=== PATIENT | female | born 1975 | race Caucasian/White ===

== ENCOUNTER 2016-11-06 06:20 | Day surgery (SDC) | payer BC ==
[~2016-11-06 06:20] MED LIST: Buffered Lidocaine 0.9% SYRIN* 5 ML/SYR SYRINGE INTRADERM ONE; Buffered Lidocaine 0.9% SYRIN* 5 ML/SYR SYRINGE ONE; Famotidine IV* 10 MG/ML 2 ML (20 mg) IV ONE; Famotidine IV* 10 MG/ML 2 ML (20 mg) ONE; Morphine INJ* 2 MG/ML 1 ML SYRINGE IV PRN; PROCHLORPERAZINE INJ 5 MG/ML 2 ML VIAL IV PRN; ceFAZolin 2 GM PREMIX(*) 2 GM/50 ML BAG IVPB ONE; fentaNYL* 50 MCG/ML 2 ML VIAL (100 MCG VIAL) IV PRN; oxyCODONE/Acetamin 5/325 MG* TAB PO PRN
[2016-11-06] MEDS ORDERED: Bupivacaine 0.25% EPI 200,000* 30 ML SDV ONE (07:15)
[2016-11-06] MEDS ORDERED: fentaNYL* 50 MCG/ML 2 ML VIAL (100 MCG VIAL) ONE (07:27)
[2016-11-06] MEDS ORDERED: Atracurium* 10 MG/ML 10 ML VIAL ONE (07:27)
[2016-11-06] MEDS ORDERED: Midazolam* 1 MG/ML 5 ML VIAL (5 MG) ONE (07:28)
[2016-11-06] MEDS ORDERED: Iohexol 180 (CONTRAST) 10 ML SDV IV ONE (07:42)
[2016-11-06] MEDS ORDERED: Morphine INJ* 10 MG/ML 1 ML SYRINGE ONE (08:05)
[2016-11-06] MEDS ORDERED: Diltiazem IV* 5 MG/ML 5 ML VIAL (for loading dose/IV Push) (25 MG) ONE (08:32)
[2016-11-06] MEDS ORDERED: Ondansetron INJ* 2 MG/ML VIAL ONE (09:09)
[2016-11-06] MEDS ORDERED: Lidocaine 2% PF * 5 ML VIAL ONE (09:09)
[2016-11-06] MEDS ORDERED: Neostigmine Methylsulfate* 2 MG/2 ML SYRINGE ONE (09:09)
[2016-11-06] MEDS ORDERED: Glycopyrrolate IV* 0.2 MG/ML 1 ML VIAL ONE (09:09)
[2016-11-06] MEDS ORDERED: EPHEDrine (Pressors)* 50 MG/ML VIAL ONE (09:09)
[2016-11-06] MEDS ORDERED: Ketorolac INJ* 30 MG/ML 1 ML VIAL ONE (09:09)
[2016-11-06] MEDS ORDERED: PROCHLORPERAZINE INJ 5 MG/ML 2 ML VIAL ONE ×2 (09:09→10:27)
[2016-11-06] MEDS ORDERED: Propofol* 10 MG/ML 20 ML BTL IV PUSH ONE (09:09)
[2016-11-06] MEDS ORDERED: Dexamethasone IV* 4 MG/ML 1 ML (4 MG) ONE (09:09)
[2016-11-06] MEDS ORDERED: oxyCODONE/Acetamin 5/325 MG* TAB PO PRN (09:36)
--- NOTE | 2016-11-06 09:40 | RAD ---
INDICATION: Cholelithiasis. Cholangiogram performed in the operating room. Cholecystectomy. COMPARISON: October 18, 2016 ultrasound and February 17, 2013 CT. TECHNIQUE: 23.1 seconds fluoroscopy. FINDINGS: Spot images document an intraoperative cholangiogram with injection through the cystic duct remnant. Negative for intra or extrahepatic biliary dilatation or filling defects to indicate ductal stones. Contrast passes through the ampulla to the duodenum. IMPRESSION: Procedural fluoroscopy. CPT II Codes: 6045F
[2016-11-06 12:30] VITALS: BP 121/80
--- NOTE | 2016-11-07 01:31 | OP ---
DATE OF OPERATION: 11/06/16 [facility] DATE OF : 79 SURGEON: Edy Caruso MD ASSOCIATE PROPERTY MANAGER: SP Carlton ANESTHESIOLOGIST: Dr. Quinonez. ANESTHESIA: General with local anesthetic. PRE-OP DIAGNOSIS: Cholelithiasis and right upper quadrant abdominal pain. POST-OP DIAGNOSES: 1. Cholelithiasis and right upper quadrant abdominal pain. 2. Normal-appearing cholangiogram. OPERATIVE PROCEDURE: Laparoscopic cholecystectomy with cholangiogram. ESTIMATED BLOOD LOSS: Minimal. SPECIMENS: Gallbladder. WOUND CLASSIFICATION: II. COMPLICATIONS: None. DRAINS: None. FINDINGS: There was one larger gallstone within the gallbladder but no evidence of acute inflammation of the gallbladder itself. The cholangiogram performed showed no evidence of filling defect in the common bile or common hepatic duct with free flow of contrast into the duodenum. BRIEF HISTORY: Ms. Katerina Higgins is a 41-year-old woman who has had episodes of epigastric and right upper quadrant abdominal pain radiating to the back over the past several months. Ultrasound has confirmed gallstones. She has had normal laboratory evaluations including a total bilirubin. She underwent an ultrasound of her gallbladder, which confirmed a 1.4 cm gallstone with normal duct size. On this ultrasound; however, there was concern for possible filling defect in the common bile duct concerning for choledocholithiasis. After discussion of options with the patient preoperatively including an MRCP, we have decided to proceed with a laparoscopic cholecystectomy with cholangiogram in light of her normal laboratory workup and ultrasound other than the common duct finding with the possibility of a postoperative ERCP that may be necessary. DESCRIPTION OF PROCEDURE: Written informed consent was obtained, the abdomen was marked with indelible ink and preoperative antibiotics were administered. The patient was taken to the operating room and placed in the supine position. Sequential compression devices and a warming blanket were applied. General anesthesia was administered and the abdomen was prepped and draped in the usual sterile fashion. A small transverse incision was made just below the umbilicus and midline fascia was divided and the peritoneal cavity was entered under direct vision. A 12-mm blunt port was inserted and the abdomen was insufflated to 15 mmHg. Under direct vision, an 11-mm epigastric port was placed and two 5-mm ports were placed in the right side of the abdominal wall. The gallbladder was identified. It was thin and bluish in color with some omental adhesions, which were taken down sharply. There appeared to be evidence of no acute or significant chronic inflammation, however. The gallbladder was elevated up over the liver bed and with care, the peritoneum along the medial and lateral aspects of the infundibular area was taken down and the cystic duct and artery were carefully identified as they entered the gallbladder. I took a considerable portion of the inferior part of the gallbladder off the liver bed using the critical view technique to assure myself of these two structures. The cystic duct did not appear to be dilated. A cholangiogram was then performed through the cystic duct using full strength contrast dye. This showed free flow of contrast into the duodenum that eliminated the ductal structures and anatomy nicely including the common hepatic duct with bifurcation , the common bile duct and including the distal portion and I noted no abnormality or dilation. The catheter was then removed. The cystic artery and duct were then doubly clipped and divided. The gallbladder was removed from the liver bed using cautery, placed in EndoCatch bag, and brought out through the umbilical incision. The liver bed was irrigated. Hemostasis was assured. All ports were removed under direct vision of the camera. There was no abdominal wall bleeding. The umbilical fascia was closed with interrupted 0 Polysorb suture. The skin was approximated with subcuticular 4-0 Polysorb suture. Steri-Strips and sterile dressings were applied. Patient tolerated the procedure well and was taken to the recovery room in stable condition. [id number]/[facility] #: [id number] HEATHD
== END 2016-11-06 12:24 | disposition home or self-care (01) ==
LOC: OR 06:20
PROVIDERS: ATTEND Surgery
DX: K80.10 Calculus of gallbladder with chronic cholecystitis without obstruction (principal); R10.11 Right upper quadrant pain; I47.1 Supraventricular tachycardia
CPT/HCPCS: 74300; 88304; J0690; J0780; J1100; J1885; J2250; J2270; J2405; J2704; J3010

== ENCOUNTER 2018-07-12 08:33 | Inpatient (IN) | payer BC ==
[~2018-07-12 08:33] MED LIST changes: -Buffered Lidocaine 0.9% SYRIN* 5 ML/SYR SYRINGE INTRADERM ONE; -Buffered Lidocaine 0.9% SYRIN* 5 ML/SYR SYRINGE ONE; +Buffered Lidocaine 1% SYRIN* 1 ML/SYRINGE INTRADERM ONE; +Dexamethasone IV* 4 MG/ML 1 ML (4 MG) IV SLOW PU ONE; -Famotidine IV* 10 MG/ML 2 ML (20 mg) ONE; +Lactated Ringers 1000 ML Bag* 1,000 ML IV SCH; -Morphine INJ* 2 MG/ML 1 ML SYRINGE IV PRN; -PROCHLORPERAZINE INJ 5 MG/ML 2 ML VIAL IV PRN; -ceFAZolin 2 GM PREMIX(*) 2 GM/50 ML BAG IVPB ONE; -fentaNYL* 50 MCG/ML 2 ML VIAL (100 MCG VIAL) IV PRN; -oxyCODONE/Acetamin 5/325 MG* TAB PO PRN
[2018-07-12] MEDS ORDERED: Dexamethasone IV* 4 MG/ML 1 ML (4 MG) ONE (08:51)
[2018-07-12] MEDS ORDERED: Buffered Lidocaine 1% SYRIN* 1 ML/SYRINGE INTRADERM ONE (08:52)
[2018-07-12] MEDS ORDERED: Famotidine IV* 10 MG/ML 2 ML (20 mg) ONE (08:52)
[2018-07-12] MEDS ORDERED: ceFAZolin 2 GM in NS PREMIX(*) 2 GM/100 ML BAG IVPB ONE (08:52)
[2018-07-12] MEDS ORDERED: Scopolamine 1.5 mg* PATCH ONE (09:12)
[2018-07-12 09:15] LABS: ABS Basophils 0 10^3/ul (0-0.2); ABS Eosinophils 0.1 10^3/ul (0-0.6); ABS Lymphocytes 1.7 10^3/ul (1.0-4.8); ABS Monocytes 0.4 10^3/ul (0-0.8); ABS Neutrophils 2.6 10^3/ul (1.5-7.7); ABS Nucleated RBC 0 10^3/ul; Eosinophil % 2.6 %; Hematocrit 41 % (33-41); Hemoglobin 13.7 g/dL (12.0-16.0); Lymphocyte % 35.2 %; Mean Corpuscular HGB Conc 33 g/dL (31-36); Mean Corpuscular Hemoglobin 30 pg (27-31); Mean Corpuscular Volume 90 fL (80-97); Mean Platelet Volume 8.5 fL (7.4-10.4); Nucleated Red Blood Cells % 0.1; Platelet Count 174 10^3/uL (150-450); Red Blood Count 4.54 10^6 /uL (3.70-4.87); Red Cell Distribution Width 12 % (10.5-15); White Blood Count 4.8 10^3/uL (3.5-10.8)
[2018-07-12] MEDS ORDERED: Ondansetron INJ* 2 MG/ML VIAL ONE (09:54)
[2018-07-12] MEDS ORDERED: Atracurium* 10 MG/ML 10 ML VIAL ONE (09:54)
[2018-07-12] MEDS ORDERED: Ketorolac INJ* 30 MG/ML 1 ML VIAL ONE (09:54)
[2018-07-12] MEDS ORDERED: Lidocaine 2% PF * 5 ML VIAL ONE ×2 (09:54→16:36)
[2018-07-12] MEDS ORDERED: fentaNYL* 50 MCG/ML 5 ML VIAL (250 MCG VIAL) ONE ×3 (09:54→21:08)
[2018-07-12] MEDS ORDERED: Midazolam* 1 MG/ML 5 ML VIAL (5 MG) ONE (09:54)
[2018-07-12] MEDS ORDERED: Propofol* 10 MG/ML 20 ML BTL ONE ×2 (09:54→16:36)
[2018-07-12] MEDS ORDERED: Bupivacaine 0.5% W/EPI SDV* 30 ML VIAL ONE (10:08)
[2018-07-12] MEDS ORDERED: Ondansetron INJ* 2 MG/ML VIAL IV PRN ×2 (10:30→12:10)
[2018-07-12] MEDS ORDERED: DiMENhydriNATE IV* 50 MG/ML VIAL IV PUSH PRN (10:30)
[2018-07-12] MEDS ORDERED: Naloxone* 0.4 MG/ML 1 ML VIAL IV PRN (10:30)
[2018-07-12] MEDS ORDERED: fentaNYL* 50 MCG/ML 2 ML VIAL (100 MCG VIAL) IV PRN (10:30)
[2018-07-12] MEDS ORDERED: HYDROmorphone INJ1* 1 MG/ML SYRINGE IV PRN (10:30)
[2018-07-12] MEDS ORDERED: Scopolamine 1.5 mg* PATCH TRANSDERM SCH (11:00)
[2018-07-12] MEDS ORDERED: Ibuprofen TAB* 600 MG PO PRN (12:10)
[2018-07-12] MEDS ORDERED: oxyCODONE/Acetamin 5/325 MG* TAB PO PRN (12:10)
--- NOTE | 2018-07-12 12:58 | OP ---
DATE OF OPERATION: 07/12/18 - ROOM #ICU-10 DATE OF : 79 SURGEON: Rishabh Mak MD GRAIN ELEVATOR SUPERINTENDENT: Dr. Yung. ANESTHESIA: General endotracheal tube. PRE-OP DIAGNOSIS: Adenomyosis. POST-OP DIAGNOSES: 1. Adenomyosis. 2. Endometriosis. 3. Pelvic adhesions. OPERATIVE PROCEDURES: Laparoscopic supracervical hysterectomy and bilateral salpingectomy, lysis of adhesions, and cautery of endometriosis. ESTIMATED BLOOD LOSS: 50 cc. SPECIMENS: Include uterus and tubes. FINDINGS: On exam under anesthesia, the cervix was small and appeared normal. Vagina and vulva appeared normal. On laparoscopy, the anterior bladder flap contained three 2-mm powder-burn type endometrial implants on the bladder. The cul-de-sac contained confluent 3 mm endometrial implants on the uterosacral ligaments on both sides, approximately 5 mm in length and 2 mm in width. The left ovary contained a cyst that was explored for endometriosis, was not found to have chocolate material within it. On the right side of the abdomen, the appendix appeared normal, but the cecal colon was adherent to the anterior abdominal wall with several powder-burn endometriosis. DESCRIPTION OF PROCEDURE: Patient identified and procedure identified as a laparoscopic hysterectomy. The patient was taken to the operating room, prepped and draped in the usual fashion in the dorsal lithotomy position under general anesthesia. A [place] uterine manipulator was placed in the cervical os. After the patient was catheterized, a small infraumbilical incision was made and carried down through fat, fascia and peritoneum. Vaughn retractor was placed and the GelPOINT platform was placed upon it. The 30 mm, 5 mm scope was inserted and the above findings were noted. The LigaSure was set at 3 bars and was used to cauterize and incise both the mesosalpinx and the both fallopian tubes were excised bilaterally. The ovarian ligament on the left was cauterized and incised. The round ligament was cauterized and incised on the left and a bladder flap was created via sharp and blunt dissection. The uterine vessels were then skeletonized and ligated using the LigaSure. On the right side, the ovarian ligament was then ligated using the LigaSure and then incised. The round ligament was ligated and incised using LigaSure and a bladder flap was created on the right side of the uterus. The bladder was dissected caudally. The uterine vessels were identified and cauterized and then incised. The uterine vessels were then incised on the left side. The SupraLoop was placed through a lower trocar within the platform and using 100 pure cut, the SupraLoop was placed over the uterus and then on to the cervical uterine junction. The scope was utilized to make sure there was no bowel within the loop and that was clear of all sidewall and vessels and bowel. The [place] was removed at the time of placement before the cautery of the SupraLoop and a sponge stick was placed in the vagina. Using 100 pure cut, the cervix was excised from the uterus. Good hemostasis was verified using unipolar cautery. The platform was removed and a bag was placed in the abdomen. The uterus was placed back into the bag and the bag was brought out through the incision. The uterus was then morcellated through that incision without difficulty and the bag was brought out intact. The platform was replaced and the scope was reinserted. Copious irrigation was utilized and suctioned out. Good hemostasis was verified. Unipolar cautery set at 30 coag was used to coagulate the endocervix as well as all visible sites of endometriosis. The left ovary was incised and then opened up and only clear fluid and a small amount of blood was obtained. No chocolate fluid. Good hemostasis was verified. All instruments removed from the abdomen. The abdomen was deflated of CO2. The fascia was then closed using 0 Polysorb in a running fashion. Good hemostasis in the subcuticular tissue and the skin was closed with 4-0 Monocryl and then with skin glue. At the end of the procedure, the sponge stick was removed from the vagina, and all sponge and instrument counts were correct. The patient returned to the recovery room in stable condition. [id number]/[facility] #: [id number] KEIRY
[2018-07-12] MEDS ORDERED: NS 0.9% 500 ML* 500 ML IV ONE (15:00)
[2018-07-12 15:27] LABS: Hematocrit 27 % (33-41); Hemoglobin 9.1 g/dL (12.0-16.0)
[2018-07-12] MEDS: Lactated Ringers 1000 ML Bag* 1,000 ML IV SCH (15:32)
[2018-07-12 15:46] LABS: ABS Basophils 0 10^3/ul (0-0.2); ABS Eosinophils 0 10^3/ul (0-0.6); ABS Lymphocytes 1.3 10^3/ul (1.0-4.8); ABS Monocytes 0.5 10^3/ul (0-0.8); ABS Neutrophils 13.4 10^3/ul (1.5-7.7); ABS Nucleated RBC 0 10^3/ul; Eosinophil % 0 %; Hematocrit 27 % (33-41); Lymphocyte % 8.3 %; Mean Corpuscular HGB Conc 34 g/dL (31-36); Mean Corpuscular Hemoglobin 31 pg (27-31); Mean Corpuscular Volume 91 fL (80-97); Mean Platelet Volume 8.9 fL (7.4-10.4); Nucleated Red Blood Cells % 0; Platelet Count 175 10^3/uL (150-450); Red Blood Count 2.95 10^6 /uL (3.70-4.87); Red Cell Distribution Width 12 % (10.5-15); White Blood Count 15.2 10^3/uL (3.5-10.8)
--- NOTE | 2018-07-12 16:32 | PN ---
Progress Note - Progress Note Date of Service: 07/12/18 Note: Called about pt at about 1500 for some persistent nausea and generally not feeling well. Normal UOP and pulse (80) but BP 80s/50s. 500cc NS bolus given. CBC obtained which showed Hct drop from 41 (preop) to 29 despite minimal bleeding during surgery this AM. Currently pt reports feeling very tired and nauseous but not much pain. On exam, pt very pale and tired, having trouble staying awake. BP 70-80s/40-50s. Abd soft, min tenderness Postop day 0, suspect intraabdominal bleeding, likely blood vessel that reopened. IV NS bolus restarted. OR notified for urgent laparoscopic evaluation. Pt counseled and consent signed. Family aware of situation. Dr. Mak aware and coming in to do surgery.
[2018-07-12] MEDS ORDERED: Rocuronium* 10 MG/ML VIAL ONE ×3 (16:36→21:08)
[2018-07-12] MEDS ORDERED: Etomidate* 2 MG/ML 10 ML VIAL ONE (16:36)
[2018-07-12] MEDS ORDERED: Succinylcholine* 20 MG/ML 10 ML VIAL ONE (16:36)
[2018-07-12] MEDS ORDERED: Hetastarch 6% in NS* 500 ML IV ONE (16:58)
[2018-07-12] MEDS ORDERED: Albumin Human 5%* 25 GM/500 ML BTL IV ONE (17:00)
[2018-07-12] MEDS ORDERED: Albumin Human 5%* 12.5 GM/250 ML BTL IV ONE (17:00)
[2018-07-12 17:42] LABS: Hematocrit 20 % (33-41); Hemoglobin 6.6 g/dL (12.0-16.0); Mean Corpuscular HGB Conc 33 g/dL (31-36); Mean Corpuscular Hemoglobin 31 pg (27-31); Mean Corpuscular Volume 93 fL (80-97); Mean Platelet Volume 8.7 fL (7.4-10.4); Platelet Count 78 10^3/uL (150-450); Red Blood Count 2.13 10^6 /uL (3.70-4.87); Red Cell Distribution Width 13 % (10.5-15); White Blood Count 9.1 10^3/uL (3.5-10.8)
[2018-07-12 17:50] LABS: Activated Partial Thrombo Time 33.5 seconds (26.0-36.3)
[2018-07-12 17:51] LABS: INR 1.59 (0.77-1.02)
[2018-07-12 17:59] LABS: ABS Basophils 0 10^3/ul (0-0.2); ABS Eosinophils 0 10^3/ul (0-0.6); ABS Lymphocytes 0.6 10^3/ul (1.0-4.8); ABS Monocytes 0.4 10^3/ul (0-0.8); ABS Nucleated RBC 0 10^3/ul; Eosinophil % 0.1 %; Lymphocyte % 6.5 %; Nucleated Red Blood Cells % 0
[2018-07-12] MEDS ORDERED: Propofol* 500 MG/50 ML BTL ONE (18:03)
[2018-07-12] MEDS ORDERED: Phenylephrine IV* 40 MCG/ML 10 ML SYRINGE ONE (18:03)
[2018-07-12] MEDS ORDERED: ceFAZolin VIAL(*) VIAL ONE (18:04)
[2018-07-12] MEDS ORDERED: Norepinephrine 16MCG/ML IVPRE* 4,000 MCG/250 ML BAG IV ONE (19:38)
[2018-07-12] MEDS ORDERED: Propofol* 100 ML ONE (20:09)
[2018-07-12] MEDS ORDERED: Calcium Gluconate INJ* 2 GM in NS 0.9% 100 ML* 100 ML IV ONE (20:45)
[2018-07-12 20:56] LABS: ABS Basophils 0 10^3/ul (0-0.2); ABS Eosinophils 0 10^3/ul (0-0.6); ABS Monocytes 1.2 10^3/ul (0-0.8); ABS Neutrophils 10.2 10^3/ul (1.5-7.7); ABS Nucleated RBC 0 10^3/ul; Eosinophil % 0 %; Hematocrit 29 % (33-41); Hemoglobin 9.7 g/dL (12.0-16.0); Lymphocyte % 7.8 %; Mean Corpuscular HGB Conc 33 g/dL (31-36); Mean Corpuscular Hemoglobin 31 pg (27-31); Mean Corpuscular Volume 93 fL (80-97); Mean Platelet Volume 8.9 fL (7.4-10.4); Nucleated Red Blood Cells % 0; Platelet Count 57 10^3/uL (150-450); Red Blood Count 3.13 10^6 /uL (3.70-4.87); Red Cell Distribution Width 14 % (10.5-15); White Blood Count 12.4 10^3/uL (3.5-10.8)
[2018-07-12 21:04] LABS: Activated Partial Thrombo Time 40.8 seconds (26.0-36.3); Fibrinogen 119.3 mg/dL (110.8-404.3); INR 1.4 (0.77-1.02)
[2018-07-12] MEDS ORDERED: Midazolam* 1 MG/ML 10 ML VIAL (10 MG) ONE (21:08)
[2018-07-12 21:14] LABS: ALT 8 U/L (7-52); AST 12 U/L (13-39); Albumin 1.9 g/dL (3.2-5.2); Albumin/Globulin Ratio 1.7 (1-3); Alkaline Phosphatase 17 U/L (34-104); Anion Gap 5 mmol/L (2-11); BUN/Creatinine Ratio 13.6 (8-20); Blood Urea Nitrogen 11 mg/dL (6-24); CO2 Carbon Dioxide 19 mmol/L (22-32); Chloride 112 mmol/L (101-111); EGFR African American 94.8 (>60); EGFR Non-African American 78.3 (>60); Globulin 1.1 g/dL (2-4); Glucose 220 mg/dL (70-100); Potassium 5.2 mmol/L (3.5-5.0); Sodium 136 mmol/L (135-145); Total Protein < 3.0 g/dL (6.4-8.9)
[2018-07-12 21:15] LABS: Calcium 5.8 mg/dL (8.6-10.3)
[2018-07-12] MEDS ORDERED: ceFOXitin 2 GM IVPREMIX* 2 GM/50 ML BAG ONE (21:19)
[2018-07-12] MEDS ORDERED: Epinephrine DRIP 4 mcg/ml 250 mls (dosed in mcg/min) IV SCH (21:30)
[2018-07-12] MEDS ORDERED: VASOPRESSIN 20 UNITS/ML 1 ML VIAL ONE (21:41)
[2018-07-12] MEDS ORDERED: Calcium CHLORIDE 10% SYRINGE* 1 GM/10 ML ONE (21:42)
[2018-07-12 21:58] LABS: ABS Basophils 0 10^3/ul (0-0.2); ABS Eosinophils 0 10^3/ul (0-0.6); ABS Lymphocytes 0.6 10^3/ul (1.0-4.8); ABS Monocytes 0.7 10^3/ul (0-0.8); ABS Neutrophils 4.3 10^3/ul (1.5-7.7); ABS Nucleated RBC 0.5 10^3/ul; Eosinophil % 0 %; Hematocrit 15 % (33-41); Lymphocyte % 10.8 %; Mean Corpuscular HGB Conc 34 g/dL (31-36); Mean Corpuscular Hemoglobin 31 pg (27-31); Mean Corpuscular Volume 92 fL (80-97); Mean Platelet Volume 7.7 fL (7.4-10.4); Nucleated Red Blood Cells % 8.7; Platelet Count 24 10^3/uL (150-450); Red Blood Count 1.62 10^6 /uL (3.70-4.87); Red Cell Distribution Width 14 % (10.5-15); White Blood Count 5.7 10^3/uL (3.5-10.8)
[2018-07-12] MEDS ORDERED: Gelfoam Sponge SIZE 100* SPONGE ONE (22:01)
[2018-07-12] MEDS ORDERED: Thrombin 5,000 UNITS* 1 APPLIC KIT - topical use - TOPICAL ONE ×2 (22:01→22:03)
[2018-07-12 22:02] LABS: Hemoglobin 5.1 g/dL (12.0-16.0)
[2018-07-12] MEDS ORDERED: Sodium Bicarbonate 8.4%* 50 ML SYRINGE ONE (22:03)
[2018-07-12 22:38] LABS: ABS Basophils 0 10^3/ul (0-0.2); ABS Eosinophils 0 10^3/ul (0-0.6); ABS Lymphocytes 0.3 10^3/ul (1.0-4.8); ABS Monocytes 0.5 10^3/ul (0-0.8); ABS Neutrophils 4.5 10^3/ul (1.5-7.7); ABS Nucleated RBC 0 10^3/ul; Eosinophil % 0 %; Hematocrit 18 % (33-41); Lymphocyte % 6.2 %; Mean Corpuscular HGB Conc 34 g/dL (31-36); Mean Corpuscular Hemoglobin 31 pg (27-31); Mean Corpuscular Volume 90 fL (80-97); Mean Platelet Volume 7.6 fL (7.4-10.4); Nucleated Red Blood Cells % 0; Platelet Count 70 10^3/uL (150-450); Red Cell Distribution Width 14 % (10.5-15); White Blood Count 5.4 10^3/uL (3.5-10.8)
[2018-07-12] MEDS ORDERED: COAGULATION FACTOR VIIA IV ONE (22:45)
[2018-07-12 22:48] LABS: Hemoglobin 6.1 g/dL (12.0-16.0); INR 0.74 (0.77-1.02)
[2018-07-12 22:52] LABS: BUN/Creatinine Ratio 17.2 (8-20); EGFR African American 139.3 (>60); EGFR Non-African American 115.1 (>60)
[2018-07-12 22:59] LABS: Potassium 5.9 mmol/L (3.5-5.0)
[2018-07-12] MEDS ORDERED: Calcium CHLORIDE 10% SYRINGE* 1 GM/10 ML IV ONE (23:04)
--- NOTE | 2018-07-12 23:57 | PN ---
Progress Note - Progress Note Date of Service: 07/12/18 Note: Central Line Procedure Note Indication:shock, venous access Diagnosis: hemorrhagic shock Performed by: Anshu Bowman MD Consent: Emergent [place] Protocol: Time-out was performed and the correct patient and site were verified - Prior labs/history was reviewed prior to procedure - Full sterile precautions with chlorhexidine/full drapes/gowns/gloves utilized - Right femoral veing visualized with ultrasound - Vessel accessed under ultrasound guidance with return of nonpulsatile blood. A guidewire was passed into vessel and confirmed in vessel with ultrasound. 1 attempt was made to access vessel. Vessel was dilated and cathetor was passed over wire into vessel. All ports demonstrated good blood return and flushed. Catheter was sutured to site and dressing applied. Adequate hemostasis was achieved EBL <5 cc No immediate complications noted, patient tolerated procedure well. Anshu Bowman MD [employer] (Electronically Signed)
--- NOTE | 2018-07-12 23:58 | PN ---
Progress Note - Progress Note Date of Service: 07/12/18 Note: Arterial Line Procedure Note Indication: invasive hemodynamic monitoring Diagnosis: hemorrhagic shock Performed by: Anshu Bowman MD Consent: Emergent [place] Protocol: Time-out was performed and the correct patient and site were verified - Prior labs/history was reviewed prior to procedure - Full sterile precautions with chlorhexidine/full drapes/gowns/gloves utilized - Left femoral artery visualized with US - Vessel accessed with return of pulsatile blood. One attempt was made to access vessel. A cathetor was threaded over wire into vessel. Good arterial waveform was observed on monitor. - Arterial Catheter was sutured to site; dressing applied to site. EBL<5 cc No immediate complications noted, patient tolerated procedure well. Anshu Bowman MD Diesel Service Journeyman (Electronically Signed)
--- NOTE | 2018-07-12 23:58 | CONSULT ---
Consult Consult: Critical Care Consult 42y F who presented for elective hysterectomy Post op today went to floor, then surgeons called for distended abdomen, lethargy, hypotension 70s. Taken to OR, found to have 2000+cc in abdomen of blood; no source but just oozing everywhere. Given total of 2 PRBC there and 2 FFP; stabilized and brought to ICU She was intubated on low dose sedation propofol in ICU, she became hypotensive, emergent central lines and arterial lines placed by me 4 more PRBC given emergently Total of 6 PRBC, 2 FFP given. Abdomen was more distended and tense, noted fluid on abd US by me Surgeon aware Dr Mak She was taken to OR by Dr Mak and Dr Baptiste for ex-lap emergently within 1- 2 hr of ICU arrival in OR, ex-lap, but no bleeding source but generalized oozing, likely from coagulopathy. abd closed now in ICU total of 3 prbc, 4 ffp, 2 plt, 1 cry given in OR now in ICU, BP stable, off levophed warm and pink appearing 2 more prbc given now, 1 cryo infusing; 2 plt enroute being shipped she is sedated, no distress. sat 100% abdominal surgical site intact, not distended making urine all labs to be sent now as repeats stat Total Critical Care time 90 min on 07/13 not including procedures Disposition: ICU for hemorrhagic shock, coagulopathy, acute blood loss anemia, respiratorry failure status: unstable, critical Anshu Bowman MD Data Sme (electronically signed)
[2018-07-13] MEDS: Lactated Ringers 1000 ML Bag* 1,000 ML IV SCH ×2 (00:21→08:21)
[2018-07-13 00:33] LABS: ABS Basophils 0 10^3/ul (0-0.2); ABS Eosinophils 0 10^3/ul (0-0.6); ABS Lymphocytes 0.7 10^3/ul (1.0-4.8); ABS Monocytes 0.8 10^3/ul (0-0.8); ABS Neutrophils 7.1 10^3/ul (1.5-7.7); ABS Nucleated RBC 0 10^3/ul; Eosinophil % 0 %; Hematocrit 31 % (33-41); Hemoglobin 10.4 g/dL (12.0-16.0); Mean Corpuscular HGB Conc 34 g/dL (31-36); Mean Corpuscular Hemoglobin 30 pg (27-31); Mean Corpuscular Volume 90 fL (80-97); Mean Platelet Volume 7.5 fL (7.4-10.4); Nucleated Red Blood Cells % 0; Platelet Count 88 10^3/uL (150-450); Red Blood Count 3.42 10^6 /uL (3.70-4.87); Red Cell Distribution Width 14 % (10.5-15); White Blood Count 8.6 10^3/uL (3.5-10.8)
[2018-07-13 00:35] LABS: Activated Partial Thrombo Time 32.8 seconds (26.0-36.3); INR 0.66 (0.77-1.02)
[2018-07-13 00:36] LABS: Albumin 2.7 g/dL (3.2-5.2); Albumin/Globulin Ratio 1.8 (1-3); BUN/Creatinine Ratio 16.7 (8-20); Calcium 7.3 mg/dL (8.6-10.3); EGFR Non-African American 110.7 (>60); Globulin 1.5 g/dL (2-4); Potassium 3.9 mmol/L (3.5-5.0); Total Bilirubin 1.2 mg/dL (0.2-1.0); Total Protein 4.2 g/dL (6.4-8.9)
[2018-07-13 00:53] LABS: Fibrinogen 314.5 mg/dL (110.8-404.3)
--- NOTE | 2018-07-13 01:53 | OP ---
AMENDED REPORT NOW INCLUDES DATE OF OPERATION DATE OF OPERATION: 07/12/18 DATE OF [facility]: 79 SURGEON: Rishabh Mak MD TIRE MANAGER: Dr. Yung. ANESTHESIA: General endotracheal tube. PRE-OP DIAGNOSIS: Postoperative bleed and shock with hematocrit of 29. POST-OP DIAGNOSIS: Hemoperitoneum. OPERATIVE PROCEDURE: 1. Evacuation of hemoperitoneum. 2. Cautery of uterine vessels. 3. Diagnostic laparoscopy. ESTIMATED BLOOD LOSS: Approximately 2 L was found in the belly. FINDINGS: At laparoscopy, there was approximately 2 L of blood in the belly, much clot in the omentum. The pedicles and the uterine vessels were inspected closely and found to be hemostatic. A small amount of bleeding from the cervical stump that was not profuse. DESCRIPTION OF PROCEDURE: Patient identified and procedure identified as a diagnostic laparoscopy. The patient was taken to the operating room, prepped and draped in the usual fashion for a laparoscopy. A sponge stick was placed in the vagina. An infraumbilical incision was made through the old incision and carried down through fat, fascia, and peritoneum. Again, the Vaughn retractor was placed and the GelPOINT placed over that. At this point, copious amounts of bright red blood were seen. The abdomen was insufflated to 15 mmHg. The laparoscope was inserted and the above findings were noted. Copious irrigation and suctioned were utilized to provide clear visualization of the areas of surgery that were done previously earlier in the day until pedicles were all visualized. All the blood vessels that had been transected that could be visualized were cauterized using the LigaSure on 3 bars. The uterine artery , especially along both sides of the cervical stump were cauterized. The left ovary where it had been incised was also reinspected and found to be hemostatic. The omentum was cleared off much of the clot, though it could not be completely cleared, and there was no active hemorrhage seen anywhere in the abdomen. After this had been fully evaluated, all instruments removed from the abdomen and the abdomen was deflated of CO2. The fascia was then closed using 0 Polysorb in a running fashion. Good hemostasis in the subcuticular tissue and the skin was closed with 4-0 Monocryl in a subcuticular fashion and glue was applied. Sponge and sponge stick was removed from the vagina and the patient was transported to ICU for decision about extubation and further evaluation for blood products. She received two units in the OR and then was continued to receive two units on the way to the ICU. All sponge and instrument counts were correct. [id number]/[facility] #: [id number] MTDDory
--- NOTE | 2018-07-13 02:43 | CONS ---
CC: Rishabh Mak MD * SURGICAL CONSULTATION: DATE OF CONSULT: 07/12/18 REQUESTING PHYSICIAN: Rishabh Mak MD REASON FOR CONSULTATION: Hemoperitoneum. HISTORY OF PRESENT ILLNESS: This is a 42-year-old female who underwent laparoscopic single-port supracervical hysterectomy today complicated by postoperative bleeding for which the patient was returned to the operating room for laparoscopy. The patient subsequently remained intubated and was transferred to the intensive care unit. She received 6 units of blood, 2 units of FFP and due to concerns for ongoing bleeding, the patient was returned to the operating room by Dr. Mak and I was asked to assist in her care. The patient was encountered on the operating room table and Dr. Mak performed midline laparotomy as dictated in his note. At that time, a large amount of hemoperitoneum was encountered and I assisted in enlarging the laparotomy incisions superiorly packing off the abdomen and temporarily applied manual compression to her aorta due to hemodynamic instability. There was subsequent return of adequate pressures and thorough exploration of the abdomen was next performed. Lap pads were removed sequentially from 4 quadrants and upon inspection of the left upper quadrant, there was a large amount of blood and clot. Due to concerns for a prior inadvertent splenic injury, the incision was further extended upwards toward the xiphoid and after evacuating blood and clot, examination of the spleen revealed this to be intact. The anterior surface of the stomach was inspected and noted to be normal. A nasogastric tube was advanced into the body of the stomach under direct palpation. Inspection of the right upper quadrant revealed no evidence of any liver injury. Gallbladder appeared normal. In the right lower quadrant, there was some blood within the right pericolic retroperitoneal tissues adjacent to the site where the patient had retroperitoneum opened during lysis of adhesions and apparent cauterization of endometriosis. Careful inspection of this area did not reveal any active bleeding. The small bowel was run from the ligament of Treitz distally to the ileocecal valve and back again. There was no evidence of injury to the small bowel or the small bowel mesentry. Inspection of the retroperitoneum in the area of the aorta and the bifurcation revealed no hematoma or evidence of injury. The large intestine was examined. The cecum, appendix, ascending colon, transverse colon all appeared normal as did the descending colon, sigmoid, and rectum. Within the omentum, there was clotted blood noted. There was some hematoma that was thought to be possibly due to small vessel bleeding within the omentum and this was ligated with 3-0 Vicryl. Remaining inspection revealed evidence of bleeding within the pelvis. This was dealt with as dictated in Dr. Mak's note. IMPRESSION: Hemoperitoneum secondary to postoperative bleeding, status post laparoscopic supracervical hysterectomy, as well as consumptive coagulopathy versus disseminated intravascular coagulation. PLAN/RECOMMENDATIONS: The patient will continue to be resuscitated and transfused per the rapid transfusion protocol in order to correct her anemia, thrombocytopenia, and coagulopathy. Surgical associates will be available should additional surgical needs arise. [id number]/[facility] #: [id number] MTDD
--- NOTE | 2018-07-13 03:24 | OP ---
OPERATIVE REPORT: DATE OF OPERATION: 07/12/18 DATE OF : 79 SURGEON: Rishabh Mak MD. SALES REPRESENTATIVE AIRCRAFT: Dr. Smyth. POWER SYSTEM DISPATCHER: Dr. Yung. ANESTHESIA: General endotracheal tube. PRE-OP DIAGNOSES: 1. Abdominal distention and shock. 2. Evidence of hemoperitoneum. POST-OP DIAGNOSIS: Hemoperitoneum. OPERATIVE PROCEDURES: Exploratory laparotomy and ligation of vessels and left salpingo-oophorectomy and ligation of omental blood vessel. ESTIMATED BLOOD LOSS: Upon entry, there was approximately 3 L of blood in her belly. FINDINGS: On exploratory laparotomy, there was 3 L of blood in her abdomen. Cervix was inspected and found to be just somewhat with a small ooze, same thing with the left ovary and the right ovary. The omentum had some clots in an area on the right side where there have been some dissection and along the midline just below the stomach, approximately 2 cm caudally from that. There was no obvious source of hemorrhage and bleeding. DESCRIPTION OF PROCEDURE: The patient was identified and procedure identified as exploratory laparotomy. The patient was taken back to the OR from the ICU, and prepped and draped in the usual fashion. An incision was initially made from the pubic bone up to the umbilicus and packed with lap pads as copious amounts of blood and clot were immediately discovered. These were utilized till the pelvis could be easily seen. There was no obvious bleeding source in the pelvis. The incision was then extended up to the xiphoid and the whole abdomen was explored. Again, initially, the packing was utilized, and given the amount of blood, Dr. Smyth put compression on the aorta while laps were used to remove clots and large amounts of blood until the organs could be well visualized. Dr. Smyth did an organized meticulous inspection of the abdomen, especially along the omentum and we inspected the pelvis because there was some bleeding from the left ovary. The decision was made to remove that left ovary from the infundibulopelvic ligament and it was suture ligated with 0 Polysorb x1 and 0 tie was placed as well. The left ovary was excised and the pedicle was found to be hemostatic. The uterine vessels on the left and right were suture ligated using 0 Polysorb after Silke clamps had been placed along the paracervical tissue. The bladder was caudal to these sites of ligation. A suture was also placed through the cervical stump in order to also provide good hemostasis. Again, no obvious source of this degree of bleeding was visualized , only small amounts of ooze from raw surfaces. It was noted that there was a tear along the right ovary and this was stitched using 3-0 Polysorb in a running locked fashion and good hemostasis was verified. This was then packed and again we reinspected the omentum after Dr. Smyth did place a suture around a vessel in the omentum that had several areas of clot, though no obvious source of ongoing bleeding. It was felt that the abdomen had been adequately visualized and again the anesthesiology and OR crew had continued to fluid resuscitate and replace the blood products that had been lost based on the patient's laboratory values and a massive transfusion protocol had been activated at the time of going to the OR. Again, all sites were inspected. Fibrinogen and Gelfoam were utilized in the pelvis along the raw surfaces to try to provide further hemostasis. All instruments were removed from the abdomen. The abdomen was then closed using 0 PDS in a running [place] fashion. Hemostasis was achieved in the subcuticular tissue and the skin was closed with ricardo. All sponge and instrument counts were correct, but because we had done in a graham, an x-ray was taken and no sponges were seen in the abdominal x-ray. The patient returned back to ICU in guarded condition. [id number]/[facility] #: [id number] [facility] HOSPITALDory
[2018-07-13] MEDS: Propofol* 100 ML IV SCH ×2 (04:29→08:19)
[2018-07-13 05:49] LABS: ABS Basophils 0 10^3/ul (0-0.2); ABS Eosinophils 0 10^3/ul (0-0.6); ABS Lymphocytes 0.9 10^3/ul (1.0-4.8); ABS Monocytes 0.6 10^3/ul (0-0.8); ABS Neutrophils 4.2 10^3/ul (1.5-7.7); ABS Nucleated RBC 0 10^3/ul; Eosinophil % 0.1 %; Hematocrit 28 % (33-41); Hemoglobin 9.7 g/dL (12.0-16.0); Lymphocyte % 15.3 %; Mean Corpuscular HGB Conc 34 g/dL (31-36); Mean Corpuscular Hemoglobin 30 pg (27-31); Mean Corpuscular Volume 88 fL (80-97); Mean Platelet Volume 7.5 fL (7.4-10.4); Nucleated Red Blood Cells % 0; Platelet Count 124 10^3/uL (150-450); Red Blood Count 3.22 10^6 /uL (3.70-4.87); Red Cell Distribution Width 14 % (10.5-15); White Blood Count 5.8 10^3/uL (3.5-10.8)
[2018-07-13 06:03] LABS: Fibrinogen 310.7 mg/dL (110.8-404.3); INR 0.82 (0.77-1.02)
[2018-07-13 06:07] LABS: Albumin 2.8 g/dL (3.2-5.2); Albumin/Globulin Ratio 1.8 (1-3); BUN/Creatinine Ratio 16.4 (8-20); Calcium 7.2 mg/dL (8.6-10.3); EGFR African American 131.4 (>60); EGFR Non-African American 108.6 (>60); Globulin 1.6 g/dL (2-4); Magnesium 1.1 mg/dL (1.9-2.7); Phosphorus 3.4 mg/dL (2.5-5.0); Potassium 3.2 mmol/L (3.5-5.0); Total Bilirubin 1.3 mg/dL (0.2-1.0); Total Protein 4.4 g/dL (6.4-8.9)
[2018-07-13] MEDS: KCL 20 MEQ/100 ML IVPREMIX* 20 MEQ/100 ML BAG IV SCH ×3 (08:19→23:13)
[2018-07-13] MEDS ORDERED: Magnesium Sulfate 2 GM IV (Premix) IVPB ONE (08:30)
[2018-07-13] MEDS ORDERED: Lactated Ringers 1000 ML Bag* 1,000 ML IV SCH (10:11)
[2018-07-13] MEDS ORDERED: Calcium Gluconate INJ* 2 GM in NS 0.9% 100 ML* 100 ML IV ONE (10:30)
[2018-07-13] MEDS ORDERED: Furosemide IV* 10 MG/ML 2 ML VIAL (20 MG) ONE ×2 (11:44→12:19)
[2018-07-13] MEDS ORDERED: Furosemide IV* 10 MG/ML VIAL (40 MG) IV ONE (11:59)
--- NOTE | 2018-07-13 12:19 | PN ---
Progress Note - Progress Note Date of Service: 07/13/18 Note: Progress Note -- Critical Care 24 hour events/significant events: -post op, hemorrhagic shock; went to OR x2 yesterday -s/p multiple PRBC/ffp/plt/cryo -overngith stabilized -on vent, no distress -some edema noted -discussed with family -tmax 99.5 Tele: NSR Vitals: Vital Signs Temp 99.5 F 07/13/18 08:00 Pulse 102 07/13/18 11:00 Resp 14 07/13/18 11:00 BP 117/85 07/13/18 04:00 Pulse Ox 100 07/13/18 11:00 Intake & Output 07/12/18 07/13/18 07/13/18 18:59 06:59 18:59 Intake Total 2029 2462 0 Output Total 2670 1285 Balance 2029 - -1285 Weight 59.148 kg 66.633 kg Intake: IV Fluids 2029 707 LR 1500 707 NS (0.9%) 480 NS 50ML, Cefazolin 2G 50 Medicated IV 186 CC - Norepinephrine/ 23 Levophed CC - Propofol/Diprivan 163 Packed Cells 930 0 Fresh Frozen Plasma 639 0 Output: [place] 2670 1285 O2/Vent: AC 305 Infusions: NS, propofol Medications: Hydromorphone HCl (Dilaudid Inj1s*) 0.5 mg IV Q4H PRN PRN Reason: PAIN - BREAKTHROUGH Propofol (Diprivan*) 100 mls @ 14.196 mls/hr IV .(Initial Rate) CAMERON; Protocol Last Admin: 07/13/18 08:19 Dose: 22.2 mls/hr Potassium Chloride (Potassium Chloride 20 Meq/100 Ml Ivpremix*) 20 meq in 100 mls @ 50 mls/hr IV Q2H [place] Stop: 07/13/18 12:29 Last Admin: 07/13/18 09:34 Dose: 50 mls/hr Calcium Gluconate 2 gm/ Sodium (Chloride) 120 mls @ 60 mls/hr IV ONCE ONE Stop: 07/13/18 12:29 Last Admin: 07/13/18 10:54 Dose: 60 mls/hr Lactated Ringer's (Lactated Ringers 1000 Ml Bag*) 1,000 mls @ 75 mls/hr IV PER RATE [facility] Ibuprofen (Motrin Tab*) 600 mg PO Q6H PRN PRN Reason: PAIN - MILD Ondansetron HCl (Zofran Inj*) 4 mg IV Q6H PRN PRN Reason: NAUSEA Last Admin: 07/12/18 13:48 Dose: 4 mg Oxycodone/Acetaminophen (Percocet 5/325 Tab*) 1 tab PO Q4H PRN PRN Reason: PAIN - MILD Oxycodone/Acetaminophen (Percocet 5/325 Tab*) 2 tab PO Q4H PRN PRN Reason: PAIN - MODERATE TO SEVERE Scopolamine (Transderm-Scop 1.5 Mg Patch*) 1 patch TRANSDERM Q72H CAMERON Last Admin: 07/12/18 09:20 Dose: 1 patch Physical Exam: Constitutional: intubated, sedated, awakens on district administrator sedation, no distress, no diaphoresis Head: normocephalic, atraumatic Eyes: no pallor now, no icterus ENT: moist mucous membranes Neck: soft, supple, no jvd CVS: normal rate, regular, no murmur Resp: bilateral air entry, no RRW, no acc muscle use Abdomen/GI: soft, tender+, midline surgical site dressed and intact, nondistended, BS+ Ext/Msk: warm, pulses+, +edema Skin: intact, warm Neuro: sedated, awakens Labs: Laboratory Results - last 24 hr 07/12/18 07/12/18 07/12/18 09:06 15:10 15:10 WBC 15.2 H RBC 2.95 L Hgb 9.0 L 9.1 L Hct 27 L 27 L MCV 91 MCH 31 MCHC 34 RDW 12 Plt Count 175 MPV 8.9 Neut % (Auto) 88.0 Lymph % (Auto) 8.3 [place] % (Auto) 3.6 Eos % (Auto) 0 Baso % (Auto) 0.1 Absolute Neuts (auto) 13.4 H Absolute Lymphs (auto) 1.3 Absolute Monos (auto) 0.5 Absolute Eos (auto) 0 Absolute Basos (auto) 0 Absolute Nucleated RBC 0 Nucleated RBC % 0 Hem Pathologist Commnt INR (Anticoag Therapy) APTT Fibrinogen Patient Temperature ABG pH ABG pCO2 ABG pO2 ABG HCO3 ABG O2 Saturation ABG Base Excess Respiration Rate O2 Delivery Device Ventilator Type Vent Mode FiO2 Inspiratory Time PEEP Pressure Support Pressure Control EPAP IPAP BiPAP Sodium Potassium Chloride Carbon Dioxide Anion Gap BUN Creatinine Est GFR ( Amer) Est GFR (Non-Af Amer) BUN/Creatinine Ratio Glucose Lactic Acid Calcium Ionized Calcium Phosphorus Magnesium Total Bilirubin Direct Bilirubin Indirect Bilirubin AST ALT Alkaline Phosphatase Total Creatine Kinase Total Protein Albumin Globulin Albumin/Globulin Ratio Blood Type A Negative Antibody Screen Negative Crossmatch See Detail 07/12/18 07/12/18 07/12/18 17:28 17:28 20:45 WBC 9.1 RBC 2.13 L Hgb 6.6 L Hct 20 L MCV 93 MCH 31 MCHC 33 RDW 13 Plt Count 78 L D MPV 8.7 Neut % (Auto) 88.2 Lymph % (Auto) 6.5 [place] % (Auto) 5.0 Eos % (Auto) 0.1 Baso % (Auto) 0.2 Absolute Neuts (auto) 8.0 H Absolute Lymphs (auto) 0.6 L Absolute Monos (auto) 0.4 Absolute Eos (auto) 0 Absolute Basos (auto) 0 Absolute Nucleated RBC 0 Nucleated RBC % 0 Hem Pathologist Commnt Cancelled INR (Anticoag Therapy) 1.59 H 1.40 H APTT 33.5 40.8 H Fibrinogen 119.3 Patient Temperature ABG pH ABG pCO2 ABG pO2 ABG HCO3 ABG O2 Saturation ABG Base Excess Respiration Rate O2 Delivery Device Ventilator Type Vent Mode FiO2 Inspiratory Time PEEP Pressure Support Pressure Control EPAP IPAP BiPAP Sodium Potassium Chloride Carbon Dioxide Anion Gap BUN Creatinine Est GFR ( Amer) Est GFR (Non-Af Amer) BUN/Creatinine Ratio Glucose Lactic Acid Calcium Ionized Calcium Phosphorus Magnesium Total Bilirubin Direct Bilirubin Indirect Bilirubin AST ALT Alkaline Phosphatase Total Creatine Kinase Total Protein Albumin Globulin Albumin/Globulin Ratio Blood Type Antibody Screen Crossmatch 07/12/18 07/12/18 07/12/18 20:45 20:45 21:49 WBC 12.4 H 5.7 RBC 3.13 L 1.62 L Hgb 9.7 L 5.1 L* Hct 29 L 15 L MCV 93 92 MCH 31 31 MCHC 33 34 RDW 14 14 Plt Count 57 L 24 L D MPV 8.9 7.7 Neut % (Auto) 82.7 76.0 Lymph % (Auto) 7.8 10.8 [place] % (Auto) 9.4 13.0 Eos % (Auto) 0 0 Baso % (Auto) 0.1 0.2 Absolute Neuts (auto) 10.2 H 4.3 Absolute Lymphs (auto) 1.0 0.6 L Absolute Monos (auto) 1.2 H 0.7 Absolute Eos (auto) 0 0 Absolute Basos (auto) 0 0 Absolute Nucleated RBC 0 0.5 Nucleated RBC % 0 8.7 Hem Pathologist Commnt INR (Anticoag Therapy) APTT Fibrinogen Patient Temperature ABG pH ABG pCO2 ABG pO2 ABG HCO3 ABG O2 Saturation ABG Base Excess Respiration Rate O2 Delivery Device Ventilator Type Vent Mode FiO2 Inspiratory Time PEEP Pressure Support Pressure Control EPAP IPAP BiPAP Sodium 136 Potassium 5.2 H Chloride 112 H Carbon Dioxide 19 L Anion Gap 5 BUN 11 Creatinine 0.81 Est GFR ( Amer) 94.8 Est GFR (Non-Af Amer) 78.3 BUN/Creatinine Ratio 13.6 Glucose 220 H Lactic Acid Calcium 5.8 L* Ionized Calcium Phosphorus Magnesium Total Bilirubin 0.60 Direct Bilirubin Indirect Bilirubin AST 12 L ALT 8 Alkaline Phosphatase 17 L Total Creatine Kinase Total Protein < 3.0 L Albumin 1.9 L Globulin 1.1 L Albumin/Globulin Ratio 1.7 Blood Type Antibody Screen Crossmatch 07/12/18 07/12/18 07/12/18 21:49 22:27 22:27 WBC 5.4 RBC 2.00 L Hgb 6.1 L* Hct 18 L MCV 90 MCH 31 MCHC 34 RDW 14 Plt Count 70 L D MPV 7.6 Neut % (Auto) 84.1 Lymph % (Auto) 6.2 [place] % (Auto) 9.6 Eos % (Auto) 0 Baso % (Auto) 0.1 Absolute Neuts (auto) 4.5 Absolute Lymphs (auto) 0.3 L Absolute Monos (auto) 0.5 Absolute Eos (auto) 0 Absolute Basos (auto) 0 Absolute Nucleated RBC 0 Nucleated RBC % 0 Hem Pathologist Commnt INR (Anticoag Therapy) APTT Fibrinogen Patient Temperature ABG pH 7.31 L ABG pCO2 33 L ABG pO2 275 H ABG HCO3 18.2 L ABG O2 Saturation 100.0 H ABG Base Excess -8.6 L Respiration Rate O2 Delivery Device Ventilator Type Vent Mode FiO2 Inspiratory Time PEEP Pressure Support Pressure Control EPAP IPAP BiPAP Sodium 139 Potassium 5.9 H Chloride 114 H Carbon Dioxide 18 L Anion Gap 7 BUN 10 Creatinine 0.58 Est GFR ( Amer) 139.3 Est GFR (Non-Af Amer) 115.1 BUN/Creatinine Ratio 17.2 Glucose 187 H Lactic Acid Calcium 6.0 L* Ionized Calcium Phosphorus Magnesium Total Bilirubin Direct Bilirubin Indirect Bilirubin AST ALT Alkaline Phosphatase Total Creatine Kinase Total Protein Albumin Globulin Albumin/Globulin Ratio Blood Type Antibody Screen Crossmatch 07/12/18 07/12/18 07/12/18 22:27 22:27 22:27 WBC RBC Hgb Hct MCV MCH MCHC RDW Plt Count MPV Neut % (Auto) Lymph % (Auto) [place] % (Auto) Eos % (Auto) Baso % (Auto) Absolute Neuts (auto) Absolute Lymphs (auto) Absolute Monos (auto) Absolute Eos (auto) Absolute Basos (auto) Absolute Nucleated RBC Nucleated RBC % Hem Pathologist Commnt INR (Anticoag Therapy) 0.74 L APTT Fibrinogen Patient Temperature Not Reportable ABG pH 7.39 ABG pCO2 28 L ABG pO2 468 H ABG HCO3 19.8 ABG O2 Saturation 99.5 H ABG Base Excess -6.6 L Respiration Rate Not Reportable O2 Delivery Device Not Reportable Ventilator Type Not Reportable Vent Mode Not Reportable FiO2 Not Reportable Inspiratory Time Not Reportable PEEP Not Reportable Pressure Support Not Reportable Pressure Control Not Reportable EPAP Not Reportable IPAP Not Reportable BiPAP Not Reportable Sodium Potassium Chloride Carbon Dioxide Anion Gap BUN Creatinine Est GFR ( Amer) Est GFR (Non-Af Amer) BUN/Creatinine Ratio Glucose Lactic Acid Calcium Ionized Calcium 0.62 L* Phosphorus Magnesium Total Bilirubin Direct Bilirubin Indirect Bilirubin AST ALT Alkaline Phosphatase Total Creatine Kinase Total Protein Albumin Globulin Albumin/Globulin Ratio Blood Type Antibody Screen Crossmatch 07/13/18 07/13/18 07/13/18 00:10 00:10 00:10 WBC 8.6 RBC 3.42 L Hgb 10.4 L Hct 31 L MCV 90 MCH 30 MCHC 34 RDW 14 Plt Count 88 L MPV 7.5 Neut % (Auto) 82.5 Lymph % (Auto) 8.0 [place] % (Auto) 9.3 Eos % (Auto) 0 Baso % (Auto) 0.2 Absolute Neuts (auto) 7.1 Absolute Lymphs (auto) 0.7 L Absolute Monos (auto) 0.8 Absolute Eos (auto) 0 Absolute Basos (auto) 0 Absolute Nucleated RBC 0 Nucleated RBC % 0 Hem Pathologist Commnt INR (Anticoag Therapy) 0.66 L APTT 32.8 Fibrinogen 314.5 Patient Temperature ABG pH ABG pCO2 ABG pO2 ABG HCO3 ABG O2 Saturation ABG Base Excess Respiration Rate O2 Delivery Device Ventilator Type Vent Mode FiO2 Inspiratory Time PEEP Pressure Support Pressure Control EPAP IPAP BiPAP Sodium Potassium Chloride Carbon Dioxide Anion Gap BUN Creatinine Est GFR ( Amer) Est GFR (Non-Af Amer) BUN/Creatinine Ratio Glucose Lactic Acid 2.8 H* Calcium Ionized Calcium Phosphorus Magnesium Total Bilirubin Direct Bilirubin Indirect Bilirubin AST ALT Alkaline Phosphatase Total Creatine Kinase Total Protein Albumin Globulin Albumin/Globulin Ratio Blood Type Antibody Screen Crossmatch 07/13/18 07/13/18 07/13/18 00:10 00:10 00:10 WBC RBC Hgb Hct MCV MCH MCHC RDW Plt Count MPV Neut % (Auto) Lymph % (Auto) [place] % (Auto) Eos % (Auto) Baso % (Auto) Absolute Neuts (auto) Absolute Lymphs (auto) Absolute Monos (auto) Absolute Eos (auto) Absolute Basos (auto) Absolute Nucleated RBC Nucleated RBC % Hem Pathologist Commnt INR (Anticoag Therapy) APTT Fibrinogen Patient Temperature ABG pH ABG pCO2 ABG pO2 ABG HCO3 ABG O2 Saturation ABG Base Excess Respiration Rate O2 Delivery Device Ventilator Type Vent Mode FiO2 Inspiratory Time PEEP Pressure Support Pressure Control EPAP IPAP BiPAP Sodium 140 Potassium 3.9 D Chloride 112 H Carbon Dioxide 21 L Anion Gap 7 BUN 10 Creatinine 0.60 Est GFR ( Amer) 134.0 Est GFR (Non-Af Amer) 110.7 BUN/Creatinine Ratio 16.7 Glucose 158 H Lactic Acid Calcium 7.3 L Ionized Calcium 0.97 L Phosphorus Magnesium Total Bilirubin 1.20 H Direct Bilirubin Indirect Bilirubin AST 49 H ALT 40 Alkaline Phosphatase 35 Total Creatine Kinase Total Protein 4.2 L Albumin 2.7 L Globulin 1.5 L Albumin/Globulin Ratio 1.8 Blood Type A Negative Antibody Screen Negative Crossmatch See Detail 07/13/18 07/13/18 07/13/18 05:38 05:38 05:38 WBC 5.8 RBC 3.22 L Hgb 9.7 L Hct 28 L MCV 88 MCH 30 MCHC 34 RDW 14 Plt Count 124 L MPV 7.5 Neut % (Auto) 73.2 Lymph % (Auto) 15.3 [place] % (Auto) 11.2 Eos % (Auto) 0.1 Baso % (Auto) 0.2 Absolute Neuts (auto) 4.2 Absolute Lymphs (auto) 0.9 L Absolute Monos (auto) 0.6 Absolute Eos (auto) 0 Absolute Basos (auto) 0 Absolute Nucleated RBC 0 Nucleated RBC % 0 Hem Pathologist Commnt INR (Anticoag Therapy) 0.82 APTT Fibrinogen 310.7 Patient Temperature ABG pH ABG pCO2 ABG pO2 ABG HCO3 ABG O2 Saturation ABG Base Excess Respiration Rate O2 Delivery Device Ventilator Type Vent Mode FiO2 Inspiratory Time PEEP Pressure Support Pressure Control EPAP IPAP BiPAP Sodium 140 Potassium 3.2 L Chloride 110 Carbon Dioxide 24 Anion Gap 6 BUN 10 Creatinine 0.61 Est GFR ( Amer) 131.4 Est GFR (Non-Af Amer) 108.6 BUN/Creatinine Ratio 16.4 Glucose 83 Lactic Acid Calcium 7.2 L Ionized Calcium Phosphorus 3.4 Magnesium 1.1 L Total Bilirubin 1.30 H Direct Bilirubin 0.30 H Indirect Bilirubin 1.0 AST 45 H ALT 35 Alkaline Phosphatase 35 Total Creatine Kinase 234 H Total Protein 4.4 L Albumin 2.8 L Globulin 1.6 L Albumin/Globulin Ratio 1.8 Blood Type Antibody Screen Crossmatch 07/13/18 08:30 WBC RBC Hgb Hct MCV MCH MCHC RDW Plt Count MPV Neut % (Auto) Lymph % (Auto) [place] % (Auto) Eos % (Auto) Baso % (Auto) Absolute Neuts (auto) Absolute Lymphs (auto) Absolute Monos (auto) Absolute Eos (auto) Absolute Basos (auto) Absolute Nucleated RBC Nucleated RBC % Hem Pathologist Commnt INR (Anticoag Therapy) APTT Fibrinogen Patient Temperature ABG pH ABG pCO2 ABG pO2 ABG HCO3 ABG O2 Saturation ABG Base Excess Respiration Rate O2 Delivery Device Ventilator Type Vent Mode FiO2 Inspiratory Time PEEP Pressure Support Pressure Control EPAP IPAP BiPAP Sodium Potassium Chloride Carbon Dioxide Anion Gap BUN Creatinine Est GFR ( Amer) Est GFR (Non-Af Amer) BUN/Creatinine Ratio Glucose Lactic Acid Calcium Ionized Calcium 1.05 L Phosphorus Magnesium Total Bilirubin Direct Bilirubin Indirect Bilirubin AST ALT Alkaline Phosphatase Total Creatine Kinase Total Protein Albumin Globulin Albumin/Globulin Ratio Blood Type Antibody Screen Crossmatch Imaging: cxr 07/13 - ett above alejandrina, no infiltrates/congestion Assessment: 42y F who presented for elective hysterectomy; post op intra-abd hemorrhage, went to OR again, 2 L blood in abd, then re-hemorrhage in ICU, return to OR for ex-lap withotu source found but suspected second bleed from coagulopathy, all occurring 07/12. -s/p Hysterectomy 07/12 - POD#1 -s/p Ex-lap 07/12 -Intraabdominal Hemorrhage -Hemorrhagic Shock -Acute blood loss anemia -Dilutional Coagulopathy -acute respiratory failure, unspecified Plan: Neuro- on propofol; wean sedation, neuro checks. asp prec. delirium prec CVS- BP improved, hg stable now. not on pressors. making urine. noted some edema , expected all the blood products -check h/h q6h; no furhter bleeding noted, coags improved/plt improved -on LR 75cc/hr; can d/c later today likely -lasix 40mg IV x1 now Resp- intubated; on 30% -cxr without acute process -wean sedation, then cpap, plan for extubation -VAP bundle ID- tmax 99. cxr clear. wbc 5. no abx. monitoring. GI/pelvic- NPO. abd soft, surgical site intact; monitor for distension, hg stable. -discussed with OB, close monitoring, h/h checks. okay for extubation Renal- Cr okay; no acidosis. -hypokalemia; replete KCL 20meq x2 -hypomag; replete Mag Sulfate 2gm IV x1 -making urine -will d/c LR later today -noted edema; lasix 40mg IV x1 now -alicea+ Heme- hemorrhagic shock; likely first time was slow bleeding somewhere, unclear source; second time may have been from dilutional coagulopathy which is ipmroved -Hg stable now, abd soft; h/h q6h -plt improved after 4 plt transfusions -INR/Ptt improved -no antiplatelets/AC -plan for workup for vWF or other bleeding dyscrasia after this. Endo-Maintain BG<200, insulin protocol as needed Musculsk- pressure ulcer prophylaxis. Bedrest. Wounds- surgical wound checks/care to ex-lap site Nutrition- NPO DVT prophylaxis: SCDs, no AC GI prophylaxis: none Central Line: Right fem 07/12 Arterial Line: left fem 07/12 [place] Cathetor: yes Disposition: Patient requires Critical Care/ICU for hemorrhagic shock, intra abd hemo, respiratory failure discussed current status and findings with family at bedside and with surgeon Patient clinical status: stable, critical Code Status: full code Total Critical Care time is 40 minutes, excluding procedures/teaching Anshu Bowman MD [facility] [facility] (Electronically Signed)
[2018-07-13 12:39] LABS: Hematocrit 32 % (33-41); Hemoglobin 11.2 g/dL (12.0-16.0)
[2018-07-13] MEDS ORDERED: Chlorhexidine MOUTHWASH 0.12%* 15 ML UDC TOPICAL SCH (13:00)
--- NOTE | 2018-07-13 13:16 | PN ---
Progress Note - Progress Note Date of Service: 07/13/18 SOAP: Subjective: POD1 s/p initially uncomplicated laparoscopic supracervical hyst with bilat salpingectomy. Returned to OR emergently about 4 hrs later when pt had hypotension and nausea, Hct decr to 29. Intraabd hemorrhage found on laparoscopic evaluation. No obvious bleed found, but several small sites were cauterized just in case. Plt noted to be 70s. Transfusions started intraop and pt sent to ICU. BP continued to be low despite multiple blood transfusions and coags worsened. Brought back to OR last night with distended abd and continued instability. On vertical laparotomy, found to have several liters of mostly liquid blood in abd, but despite extensive evaluation, no clear source still found. Overnight, with platelets, FFP and cryo in additional PRBCs, pt stabilized. Currently awake but drowsy, still intubated. Reports some pain, but most is from the tube. Received lasix this AM. Objective: Vital Signs: Temp Pulse Resp BP Pulse Ox 99.5 F 102 14 117/85 100 07/13/18 08:00 07/13/18 11:00 07/13/18 11:00 07/13/18 04:00 07/13/18 11:00 Intake & Output 07/12/18 07/13/18 07/13/18 22:59 06:59 14:59 Intake Total 480 2462 0 Output Total 2670 1285 Balance 480 -208 -1285 Weight 146 lb 14.4 oz Intake: IV Fluids 480 707 LR 707 NS (0.9%) 480 Medicated IV 186 CC - Norepinephrine/ 23 Levophed CC - Propofol/Diprivan 163 Packed Cells 930 0 Fresh Frozen Plasma 639 0 Output: [place] 2670 1285 Gen: awake and able to motion with her hands, seems calm but drowsy and uncomfortable with the breathing tube Abd soft, +BS, bandage in place Ext: 1+ edema Urine very clear ABG pH 7.39 (7.35-7.45) 07/12/18 22:27 ABG HCO3 19.8 mmol/L (19-31) 07/12/18 22:27 Sodium 140 mmol/L (135-145) 07/13/18 05:38 Potassium 3.2 mmol/L (3.5-5.0) L 07/13/18 05:38 BUN 10 mg/dL (6-24) 07/13/18 05:38 Creatinine 0.61 mg/dL (0.51-0.95) 07/13/18 05:38 Calcium 7.2 mg/dL (8.6-10.3) L 07/13/18 05:38 Magnesium 1.1 mg/dL (1.9-2.7) L 07/13/18 05:38 AST 45 U/L (13-39) H 07/13/18 05:38 ALT 35 U/L (7-52) 07/13/18 05:38 Laboratory Last Values WBC 5.8 10^3/uL (3.5-10.8) 07/13/18 05:38 RBC 3.22 10^6 /uL (3.70-4.87) L 07/13/18 05:38 Hgb 11.2 g/dL (12.0-16.0) L 07/13/18 12:30 Hct 32 % (33-41) L 07/13/18 12:30 MCV 88 fL (80-97) 07/13/18 05:38 MCH 30 pg (27-31) 07/13/18 05:38 MCHC 34 g/dL (31-36) 07/13/18 05:38 RDW 14 % (10.5-15) 07/13/18 05:38 Plt Count 124 10^3/uL (150-450) L 07/13/18 05:38 MPV 7.5 fL (7.4-10.4) 07/13/18 05:38 Neut % (Auto) 73.2 % 07/13/18 05:38 Lymph % (Auto) 15.3 % 07/13/18 05:38 [place] % (Auto) 11.2 % 07/13/18 05:38 Eos % (Auto) 0.1 % 07/13/18 05:38 Baso % (Auto) 0.2 % 07/13/18 05:38 Absolute Neuts (auto) 4.2 10^3/ul (1.5-7.7) 07/13/18 05:38 Absolute Lymphs (auto) 0.9 10^3/ul (1.0-4.8) L 07/13/18 05:38 Absolute Monos (auto) 0.6 10^3/ul (0-0.8) 07/13/18 05:38 Absolute Eos (auto) 0 10^3/ul (0-0.6) 07/13/18 05:38 Absolute Basos (auto) 0 10^3/ul (0-0.2) 07/13/18 05:38 Absolute Nucleated RBC 0 10^3/ul 07/13/18 05:38 Nucleated RBC % 0 07/13/18 05:38 Hem Pathologist Commnt Cancelled 07/12/18 17:28 INR (Anticoag Therapy) 0.82 (0.77-1.02) 07/13/18 05:38 APTT 32.8 seconds (26.0-36.3) 07/13/18 00:10 Fibrinogen 310.7 mg/dL (110.8-404.3) 07/13/18 05:38 Patient Temperature Not Reportable 07/12/18 22:27 ABG pH 7.39 (7.35-7.45) 07/12/18 22:27 ABG pCO2 28 mmHg (35-45) L 07/12/18 22:27 ABG pO2 468 mmHg (80-100) H 07/12/18 22:27 ABG HCO3 19.8 mmol/L (19-31) 07/12/18 22:27 ABG O2 Saturation 99.5 % (94.0-98.0) H 07/12/18 22:27 ABG Base Excess -6.6 mmol/L (-2.0-2.0) L 07/12/18 22:27 Respiration Rate Not Reportable 07/12/18 22:27 O2 Delivery Device Not Reportable 07/12/18 22:27 Ventilator Type Not Reportable 07/12/18 22:27 Vent Mode Not Reportable 07/12/18 22:27 FiO2 Not Reportable 07/12/18 22:27 Inspiratory Time Not Reportable 07/12/18 22:27 PEEP Not Reportable 07/12/18 22:27 Pressure Support Not Reportable 07/12/18 22:27 Pressure Control Not Reportable 07/12/18 22:27 EPAP Not Reportable 07/12/18 22:27 IPAP Not Reportable 07/12/18 22:27 BiPAP Not Reportable 07/12/18 22:27 Sodium 140 mmol/L (135-145) 07/13/18 05:38 Potassium 3.2 mmol/L (3.5-5.0) L 07/13/18 05:38 Chloride 110 mmol/L (101-111) 07/13/18 05:38 Carbon Dioxide 24 mmol/L (22-32) 07/13/18 05:38 Anion Gap 6 mmol/L (2-11) 07/13/18 05:38 BUN 10 mg/dL (6-24) 07/13/18 05:38 Creatinine 0.61 mg/dL (0.51-0.95) 07/13/18 05:38 Est GFR ( Amer) 131.4 (>60) 07/13/18 05:38 Est GFR (Non-Af Amer) 108.6 (>60) 07/13/18 05:38 BUN/Creatinine Ratio 16.4 (8-20) 07/13/18 05:38 Glucose 83 mg/dL (70-100) 07/13/18 05:38 Lactic Acid 2.8 mmol/L (0.5-2.0) H* 07/13/18 00:10 Calcium 7.2 mg/dL (8.6-10.3) L 07/13/18 05:38 Ionized Calcium 1.05 mmol/L (1.16-1.32) L 07/13/18 08:30 Phosphorus 3.4 mg/dL (2.5-5.0) 07/13/18 05:38 Magnesium 1.1 mg/dL (1.9-2.7) L 07/13/18 05:38 Total Bilirubin 1.30 mg/dL (0.2-1.0) H 07/13/18 05:38 Direct Bilirubin 0.30 mg/dL (0.03-0.18) H 07/13/18 05:38 Indirect Bilirubin 1.0 mg/dL (0.3-1.0) 07/13/18 05:38 AST 45 U/L (13-39) H 07/13/18 05:38 ALT 35 U/L (7-52) 07/13/18 05:38 Alkaline Phosphatase 35 U/L (34-104) 07/13/18 05:38 Total Creatine Kinase 234 U/L (10-223) H 07/13/18 05:38 Total Protein 4.4 g/dL (6.4-8.9) L 07/13/18 05:38 Albumin 2.8 g/dL (3.2-5.2) L 07/13/18 05:38 Globulin 1.6 g/dL (2-4) L 07/13/18 05:38 Albumin/Globulin Ratio 1.8 (1-3) 07/13/18 05:38 Blood Type A Negative 07/13/18 00:10 Antibody Screen Negative 07/13/18 00:10 Crossmatch See Detail 07/13/18 00:10 Assessment: POD1 s/p LSH followed to two additional operations for intraabd hemorrhage, most consistent with DIC. Now that coags are corrected, pt appears to be stable and much improved. Plan: Breathing trial now, plan extubation shortly. Continue ICU until ambulatory and stable. Discussed situation and yesterday's events with family at bedside. All are very appreciative of the care and questions were answered. Recommend full coag evaluation after pt has fully recovered. Greatly appreciate ICU provider care. Reel And Rewinder Operator will continue to follow closely.
[2018-07-13] MEDS: HYDROmorphone INJ1* 1 MG/ML SYRINGE IV PRN ×2 (13:28→18:19)
[2018-07-13 18:16] LABS: Hematocrit 31 % (33-41); Hemoglobin 10.8 g/dL (12.0-16.0)
[2018-07-13 18:30] LABS: BUN/Creatinine Ratio 12.3 (8-20); Calcium 7.7 mg/dL (8.6-10.3); EGFR African American 142.1 (>60); EGFR Non-African American 117.5 (>60); Potassium 3.2 mmol/L (3.5-5.0)
[2018-07-13] MEDS: HYDROmorphone INJ1* 1 MG/ML SYRINGE IV SLOW PU PRN (20:32)
[2018-07-14 00:49] LABS: Hematocrit 30 % (33-41); Hemoglobin 10.4 g/dL (12.0-16.0)
[2018-07-14] MEDS: HYDROmorphone INJ1* 1 MG/ML SYRINGE IV SLOW PU PRN ×2 (01:02→05:35)
[2018-07-14] MEDS: KCL 20 MEQ/100 ML IVPREMIX* 20 MEQ/100 ML BAG IV SCH ×3 (01:19→11:13)
[2018-07-14 05:54] LABS: ABS Basophils 0 10^3/ul (0-0.2); ABS Eosinophils 0.2 10^3/ul (0-0.6); ABS Lymphocytes 0.6 10^3/ul (1.0-4.8); ABS Monocytes 0.8 10^3/ul (0-0.8); ABS Neutrophils 6.6 10^3/ul (1.5-7.7); ABS Nucleated RBC 0 10^3/ul; Eosinophil % 2.7 %; Hematocrit 30 % (33-41); Hemoglobin 10.3 g/dL (12.0-16.0); Lymphocyte % 7.7 %; Mean Corpuscular HGB Conc 35 g/dL (31-36); Mean Corpuscular Hemoglobin 30 pg (27-31); Mean Corpuscular Volume 87 fL (80-97); Mean Platelet Volume 7.2 fL (7.4-10.4); Nucleated Red Blood Cells % 0; Platelet Count 130 10^3/uL (150-450); Red Cell Distribution Width 14 % (10.5-15); White Blood Count 8.3 10^3/uL (3.5-10.8)
[2018-07-14 06:00] LABS: INR 1.08 (0.77-1.02)
[2018-07-14 06:11] LABS: Albumin 2.9 g/dL (3.2-5.2); Albumin/Globulin Ratio 1.3 (1-3); BUN/Creatinine Ratio 9.1 (8-20); Calcium 7.9 mg/dL (8.6-10.3); EGFR African American 148.1 (>60); EGFR Non-African American 122.4 (>60); Globulin 2.2 g/dL (2-4); Indirect Bilirubin 0.5 mg/dL (0.3-1.0); Magnesium 1.7 mg/dL (1.9-2.7); Phosphorus 2.6 mg/dL (2.5-5.0); Potassium 3.7 mmol/L (3.5-5.0); Total Bilirubin 0.7 mg/dL (0.2-1.0); Total Protein 5.1 g/dL (6.4-8.9)
[2018-07-14] MEDS ORDERED: Magnesium Sulfate IV* 2 GM in NS 0.9% 100 ML* 100 ML IV ONE (08:55)
[2018-07-14] MEDS ORDERED: Magnesium Sulfate 2 GM IV* 2 GM/50 ML BAG IVPB ONE (09:00)
--- NOTE | 2018-07-14 09:17 | PN ---
Progress Note - Progress Note Date of Service: 07/14/18 SOAP: Subjective: [pt still continues to feel improved with less pain than yesterday. no flatus yet. no nausea or vommiting. not much appetite yet. d/w pt and she had stopped her excedrin over a week prior to her surgery. She does not take any herbal supplements] Objective: [vitals are stabe . she remains afebrile. urine output still very good. chest cta though diminished cor - rr abdomen - soft mildly tender. decreased bowel sounds extremities nontender dressing is dry INR 1.06 which is elevated and of concern . Otherwise rest of her labs are normalizing] Assessment: [POD # 2 s/p supracervical hysterectomy salpingectomy /DAE / cautery of endometrioisis followed by 2nd laparoscopy and large midline laparatomy for post operative hemorrhage and coagulopathy and massive transfusion. stable] Plan: [Will discuss with the dot net developer the INR]
--- NOTE | 2018-07-14 11:34 | PN ---
Progress Note - Progress Note Date of Service: 07/14/18 Note: Progress Note -- Critical Care 24 hour events/significant events: -in bed, no distress; no cp/sob -extubated yesterday successfully -no overnight events noted -feels better -abd pain intermittent -making urine -eating+ Tele: NSR, mild tachycardia at times Vitals: Vital Signs Temp 99.6 F 07/14/18 08:00 Pulse 116 07/14/18 10:01 Resp 30 07/14/18 10:01 BP 114/79 07/14/18 01:13 Pulse Ox 100 07/14/18 10:01 Intake & Output 07/13/18 07/14/18 07/14/18 18:59 06:59 18:59 Intake Total 729 1357 100 Output Total 5552 2395 750 Balance -4858 -1038 -650 Weight 63.078 kg Intake: IV Fluids 729 1167 LR 729 1167 Medicated IV 100 potassium 100 Oral 0 90 100 Packed Cells 0 0 Fresh Frozen Plasma 0 0 Output: Urine 4300 Alicae 1285 2395 750 O2/Vent: NC 2 L Infusions: heplock Medications: Hydromorphone HCl (Dilaudid Inj1s*) 0.5 mg IV Q4H PRN PRN Reason: PAIN - BREAKTHROUGH Last Admin: 07/13/18 18:19 Dose: 0.5 mg Hydromorphone HCl (Dilaudid Inj1s*) 0.5 mg IV SLOW PU Q4H PRN PRN Reason: PAIN - MODERATE Last Admin: 07/14/18 05:35 Dose: 0.5 mg Propofol (Diprivan*) 100 mls @ 14.196 mls/hr IV .(Initial Rate) CAMERON; Protocol Last Admin: 07/13/18 08:19 Dose: 22.2 mls/hr Potassium Chloride (Potassium Chloride 20 Meq/100 Ml Ivpremix*) 20 meq in 100 mls @ 50 mls/hr IV Q2H CAMERON Stop: 07/14/18 12:59 Last Admin: 07/14/18 11:13 Dose: 50 mls/hr Ibuprofen (Motrin Tab*) 600 mg PO Q6H PRN PRN Reason: PAIN - MILD Ondansetron HCl (Zofran Inj*) 4 mg IV Q6H PRN PRN Reason: NAUSEA Last Admin: 07/12/18 13:48 Dose: 4 mg Oxycodone/Acetaminophen (Percocet 5/325 Tab*) 1 tab PO Q4H PRN PRN Reason: PAIN - MILD Oxycodone/Acetaminophen (Percocet 5/325 Tab*) 2 tab PO Q4H PRN PRN Reason: PAIN - MODERATE TO SEVERE Scopolamine (Transderm-Scop 1.5 Mg Patch*) 1 patch TRANSDERM Q72H CAMERON Last Admin: 07/12/18 09:20 Dose: 1 patch Physical Exam: Constitutional: awake, alert, no distress, no diaphoresis Head: normocephalic, atraumatic Eyes: no pallor now, no icterus ENT: moist mucous membranes Neck: soft, supple, no jvd CVS: normal rate, regular, no murmur Resp: bilateral air entry, no RRW, no acc muscle use Abdomen/GI: soft, tender+, midline surgical site dressed and intact, nondistended, BS+ Ext/Msk: warm, pulses+, +edema mild Skin: intact, warm Neuro: awake,alert, oriented x3, moving all ext Labs: Laboratory Results - last 24 hr 07/12/18 07/13/18 07/13/18 09:06 00:10 12:30 WBC RBC Hgb 11.2 L Hct 32 L MCV MCH MCHC RDW Plt Count MPV Neut % (Auto) Lymph % (Auto) Gaines % (Auto) Eos % (Auto) Baso % (Auto) Absolute Neuts (auto) Absolute Lymphs (auto) Absolute Monos (auto) Absolute Eos (auto) Absolute Basos (auto) Absolute Nucleated RBC Nucleated RBC % INR (Anticoag Therapy) Sodium Potassium Chloride Carbon Dioxide Anion Gap BUN Creatinine Est GFR ( Amer) Est GFR (Non-Af Amer) BUN/Creatinine Ratio Glucose POC Glucose (mg/dL) Calcium Phosphorus Magnesium Total Bilirubin Direct Bilirubin Indirect Bilirubin AST ALT Alkaline Phosphatase Total Protein Albumin Globulin Albumin/Globulin Ratio Blood Type A Negative Antibody Screen Negative Crossmatch See Detail See Detail 07/13/18 07/13/18 07/13/18 13:08 13:13 18:00 WBC RBC Hgb Hct MCV MCH MCHC RDW Plt Count MPV Neut % (Auto) Lymph % (Auto) Gaines % (Auto) Eos % (Auto) Baso % (Auto) Absolute Neuts (auto) Absolute Lymphs (auto) Absolute Monos (auto) Absolute Eos (auto) Absolute Basos (auto) Absolute Nucleated RBC Nucleated RBC % INR (Anticoag Therapy) Sodium 139 Potassium 3.2 L Chloride 104 Carbon Dioxide 29 Anion Gap 6 BUN 7 Creatinine 0.57 Est GFR ( Amer) 142.1 Est GFR (Non-Af Amer) 117.5 BUN/Creatinine Ratio 12.3 Glucose 98 POC Glucose (mg/dL) 57 L 103 H Calcium 7.7 L Phosphorus Magnesium Total Bilirubin Direct Bilirubin Indirect Bilirubin AST ALT Alkaline Phosphatase Total Protein Albumin Globulin Albumin/Globulin Ratio Blood Type Antibody Screen Crossmatch 07/13/18 07/14/18 07/14/18 18:00 00:38 00:40 WBC RBC Hgb 10.8 L 10.4 L Hct 31 L 30 L MCV MCH MCHC RDW Plt Count MPV Neut % (Auto) Lymph % (Auto) Gaines % (Auto) Eos % (Auto) Baso % (Auto) Absolute Neuts (auto) Absolute Lymphs (auto) Absolute Monos (auto) Absolute Eos (auto) Absolute Basos (auto) Absolute Nucleated RBC Nucleated RBC % INR (Anticoag Therapy) Sodium Potassium Chloride Carbon Dioxide Anion Gap BUN Creatinine Est GFR ( Amer) Est GFR (Non-Af Amer) BUN/Creatinine Ratio Glucose POC Glucose (mg/dL) 92 Calcium Phosphorus Magnesium Total Bilirubin Direct Bilirubin Indirect Bilirubin AST ALT Alkaline Phosphatase Total Protein Albumin Globulin Albumin/Globulin Ratio Blood Type Antibody Screen Crossmatch 07/14/18 07/14/18 07/14/18 05:40 05:40 05:40 WBC 8.3 RBC 3.40 L Hgb 10.3 L Hct 30 L MCV 87 MCH 30 MCHC 35 RDW 14 Plt Count 130 L MPV 7.2 L Neut % (Auto) 79.6 Lymph % (Auto) 7.7 Gaines % (Auto) 9.9 Eos % (Auto) 2.7 Baso % (Auto) 0.1 Absolute Neuts (auto) 6.6 Absolute Lymphs (auto) 0.6 L Absolute Monos (auto) 0.8 Absolute Eos (auto) 0.2 Absolute Basos (auto) 0 Absolute Nucleated RBC 0 Nucleated RBC % 0 INR (Anticoag Therapy) 1.08 H Sodium 136 Potassium 3.7 Chloride 104 Carbon Dioxide 28 Anion Gap 4 BUN 5 L Creatinine 0.55 Est GFR ( Amer) 148.1 Est GFR (Non-Af Amer) 122.4 BUN/Creatinine Ratio 9.1 Glucose 95 POC Glucose (mg/dL) Calcium 7.9 L Phosphorus 2.6 Magnesium 1.7 L Total Bilirubin 0.70 Direct Bilirubin 0.20 H Indirect Bilirubin 0.5 AST 27 ALT 26 Alkaline Phosphatase 41 Total Protein 5.1 L Albumin 2.9 L Globulin 2.2 Albumin/Globulin Ratio 1.3 Blood Type Antibody Screen Crossmatch Imaging: cxr 07/13 - ett above alejandrina, no infiltrates/congestion Assessment: 42y F who presented for elective hysterectomy; post op intra-abd hemorrhage, went to OR again, 2 L blood in abd, then re-hemorrhage in ICU, return to OR for ex-lap withotu source found but suspected second bleed from coagulopathy, all occurring 07/12. -s/p Hysterectomy 07/12 - POD#2 -s/p Ex-lap 07/12 -Intraabdominal Hemorrhage -Hemorrhagic Shock -Acute blood loss anemia -Dilutional Coagulopathy -acute respiratory failure, unspecified Plan: Neuro- alert; delirium prec CVS- -Bp stable, HR intermittent tachy may be from pain -Hg stable -mild edema, off IVF, repeat lasix 20mg IV x1 -follow h/h daily -d/c central/art lines today Resp- -on NC 2 L -repeat lasix -no distress ID- tmax 99. no abx. monitoring. GI/pelvic- -abd soft, tender around surgical sites; intact otherwise -advance diet to regular -hg stable -painting supervisor following Renal- Cr okay; no acidosis. -hypokalemia; replete KCL 20meq x2 -hypomag; replete Mag Sulfate 2gm IV x1 -making urine -repeat lasix 20mg IV x1 -d/c alicea later today Heme- hemorrhagic shoc resolved; likely first time was slow bleeding somewhere, unclear source; second time may have been from dilutional coagulopathy which is ipmroved -Hg stable -INR 1.08; still normal range -heme consult for eval for underlying coagulopathy/plt dysfxn w/u -no antiplatelets/AC Endo-Maintain BG<200, insulin protocol as needed Musculsk- pressure ulcer prophylaxis. Bedrest, oob to chair later today Wounds- surgical wound checks/care to ex-lap site Nutrition- advance to reg consistency reg diet DVT prophylaxis: SCDs, no AC GI prophylaxis: none Central Line: Right fem 07/12 Arterial Line: left fem 07/12 Alicea Cathetor: yes Disposition: Patient requires Critical Care/ICU for hemorrhagic shock, intra abd hemotoma, close monitoring for bleeding discussed current status and findings with family at bedside and with surgeon Patient clinical status: stable/improved Code Status: full code Anshu Bowman MD [employer] (Electronically Signed)
[2018-07-14] MEDS: oxyCODONE/Acetamin 5/325 MG* TAB PO PRN ×2 (11:46→23:41)
[2018-07-14] MEDS ORDERED: Furosemide IV* 10 MG/ML 2 ML VIAL (20 MG) IV ONE (13:32)
--- NOTE | 2018-07-14 14:17 | CONS ---
HEMATOLOGY CONSULTATION REPORT: DATE OF CONSULT: 07/13/18 PRIMARY CARE PROVIDER: Dr. Rosa Galindo. ATTENDING PHYSICIAN: Dr. Rishabh Mak. POLICE RADIO DISPATCHER AND REQUESTING PROVIDER: Dr. Anshu Bowman. PRIMARY PHYS ASSISTANT: Dr. Melanie Saldana. CONSULTING PROVIDER: SP Mei REASON FOR CONSULTATION: Severe hemorrhage with suspected coagulopathy. HISTORY OF PRESENT ILLNESS: This is an otherwise healthy 42-year-old female who presented to the hospital for elective hysterectomy for history of dysmenorrhea secondary to endometriosis and fibroid uterus. Unfortunately, she experienced severe amount of bleeding leading to hemorrhagic shock following her hysterectomy. She received a total of 11 units of packed red blood cells, 6 units of FFP, 4 units of platelets and 2 units of cryoprecipitate. Her initial surgery was 07/12/18. She was brought back to the OR later that evening for evaluation of source of her bleeding and underwent an exploratory laparoscopy. She was noted to have hemoperitoneum which was subsequently evacuated but no obvious source of bleeding. Multiple areas of oozing and the identified areas were subsequently cauterized. On the following day, 07/13/18, she was taken back to the OR again and at this point received an exploratory laparotomy and underwent ligation of uterine and omental blood vessels, but again, there was no obvious source of major bleeding. After transfusion of blood products, and 2 subsequent procedures as listed above, the patient has now been stable for a period of approximately 24 hours. Her hemoglobin measured today at 10.3 g/dL and appears hemodynamically stable. Hematology was asked to consult in order to determine the potential etiology for the severity of her hemorrhage. The patient has had minor surgical procedures but including a cholecystectomy and a prior tubal ligation with ovarian cystectomy and prior dental extractions that have had no bleeding complications. She reports that she does bruise rather easily but denies any episodes of epistaxis or excess gum bleeding with dental hygiene procedures. She denies any hematuria, melena or hematochezia. Prior to her hysterectomy, she does report that she was experiencing heavy menstrual bleeding with clots for the first couple of days of her cycle and for most of her life, she would bleed for 3 to 4 days, but over the last several months, it was up to 10 days of menstrual bleeding. She is an otherwise healthy woman, takes occasional medications for her migraines, but has stopped all NSAIDs at least 1 week prior to her hysterectomy procedure. PAST MEDICAL HISTORY: 1. Migraine headaches. 2. No prior pregnancies. 3. SVT, status post cardiac ablation x10 times between 2001 and 2004, stable since that time. PAST SURGICAL HISTORY: 1. Tubal ligation with ovarian cystectomy in 2008. 2. Cholecystectomy in 2017. 3. Cardiac ablation x10, separate procedures between 2001 and 2004. HOME MEDICATIONS: 1. Excedrin 1 tab p.o. q.6 hours as needed for migraine headache. 2. Naproxen 220 mg p.o. q.6 hours as needed for pain. FAMILY HISTORY: The patient's father passed due to complications for multiple myeloma. Her paternal grandfather passed of an unknown type of cancer. Maternal grandfather had lung cancer. No history of bleeding or clotting disorders that are known within the family. SOCIAL HISTORY: The patient lives at home with her and step-children. She is employed at [employer]. No history of tobacco use and does not use alcohol on a regular basis. PHYSICAL EXAM: Current vital signs: Temperature 98.8 degrees Fahrenheit, pulse 106 beats per minute, respiratory rate 20, oxygen saturation 100% on room air, blood pressure 137/73 mmHg. General: This is a very fatigued-appearing 42 -year- old female accompanied by her and mother who is in no acute distress. HEENT: Head is normocephalic, atraumatic. Mucous membranes are pink and moist. Cardiovascular: Heart has a regular rate and rhythm without murmurs , rubs, or gallops. Respiratory: Lungs are clear to auscultation without wheezes, crackles, or rhonchi. Abdomen: Soft with dry and intact dressing over midline surgical incision with arterial line present in the inguinal region. Extremities: No edema appreciated. LABORATORY DATA: Most recent labs: CBC from 07/14/18 shows white blood cell count of 8,300, hemoglobin of 10.3 g/dL, and a platelet count of 130,000. INR 1.08. Comprehensive metabolic panel is unremarkable with sodium of 136, potassium 3.7 mmol/L, BUN of 5, creatinine 0.55. Magnesium 1.7. Transaminases and total bilirubin are within normal limits. Review of prior labs: Preoperative CBC reviewed which demonstrated the white blood cell count of 4800, hemoglobin of 13.7, and platelet count of 174,000. On historic review, she has no history of prior cytopenias. Postoperatively, hemoglobin dropped to as low as 5.1, platelets dropped to as low as 24,000, INR of 1.59 postoperatively at the onset of hemorrhage which corrected following blood product infusion. HOSPITAL IMAGIN. X-ray of the abdomen, 07/12/18, shows postoperative changes with no unexpected foreign bodies. 2. Chest x-ray, 07/13/18, demonstrates an ET tube in place with interstitial pulmonary edema. ASSESSMENT AND PLAN: This is a 42-year-old female who was previously healthy, who underwent elective hysterectomy with complication of severe hemorrhage and subsequent hemorrhagic shock, who has now stabilized status post transfusion of multiple blood products. Hematology has been asked to consult as to potential etiology for the severe hemorrhage. The most likely explanation would be von Willebrand Syndrome, although it seems that with her prior surgical procedures and/or dental extractions, she would have had some, even mild bleeding complications which does not describe. Certainly an acquired factor deficiency is a possibility given her history that is otherwise benign. Given her recent massive transfusion of blood products, current workup for coagulopathy would be unlikely to yield accurate results as her current factor levels would be more business representative of her transfused factors rather than her chadd factor levels that would have led to her potential hemorrhage. For this reason, doing further bleeding workup would be appropriate to the outpatient setting. 1. Hemorrhage - currently stable. If she seems to develop recurrent bleeding, then most appropriate response would be to treat with a factor VII as the etiology as her bleeding disorder is not known at this time and starting at a dose of 19 mcg/kg. As mentioned above, outpatient workup will be most appropriate in approximately 2 to 3 weeks and she can see Dr. Melanie Saldana as an outpatient at that time. 2. Disposition: Further management per BENCH EXAMINER and factory representative. Hematology will be available if necessary. Plan to see the patient in outpatient clinic in 2 to [address] Melanie Saldana. This case was discussed by phone with Dr. Saldana. TIME SPENT: Time spent on consultation is approximately 60 minutes. SP MEI [id number]/[facility] #: [id number] [facility]ITAL[facility]
[2018-07-14] MEDS ORDERED: Docusate LIQ* 100 MG/10 ML UDC PO PRN (17:20)
[2018-07-14] MEDS: HYDROmorphone INJ1* 1 MG/ML SYRINGE IV PRN (19:10)
--- NOTE | 2018-07-14 19:48 | PN ---
Progress Note - Progress Note Date of Service: 07/14/18 SOAP: Subjective: [pt doing better again. taking po pain meds now. Negative flatus. had been out of bed] Objective: [vss afebrile pulse 110 / urine out good abdomen + bowel sounds now. dressing intact extremity nontender] Assessment: [improving] Plan: [maybe out of icu tomorrow / may remove dressing tomorrow Ascencion Mak md]
[2018-07-15] MEDS: Acetaminophen TAB* 325 MG PO PRN ×2 (02:19→17:07)
[2018-07-15 05:25] LABS: ABS Basophils 0 10^3/ul (0-0.2); ABS Eosinophils 0.4 10^3/ul (0-0.6); ABS Lymphocytes 1.2 10^3/ul (1.0-4.8); ABS Monocytes 0.7 10^3/ul (0-0.8); ABS Neutrophils 5.7 10^3/ul (1.5-7.7); ABS Nucleated RBC 0 10^3/ul; Eosinophil % 5.6 %; Hematocrit 31 % (33-41); Hemoglobin 10.7 g/dL (12.0-16.0); Lymphocyte % 14.9 %; Mean Corpuscular HGB Conc 35 g/dL (31-36); Mean Corpuscular Hemoglobin 31 pg (27-31); Mean Corpuscular Volume 88 fL (80-97); Mean Platelet Volume 7.4 fL (7.4-10.4); Nucleated Red Blood Cells % 0; Platelet Count 135 10^3/uL (150-450); Red Blood Count 3.47 10^6 /uL (3.70-4.87); Red Cell Distribution Width 14 % (10.5-15); White Blood Count 8.1 10^3/uL (3.5-10.8)
[2018-07-15 05:44] LABS: INR 1.02 (0.77-1.02)
[2018-07-15 05:54] LABS: BUN/Creatinine Ratio 13.7 (8-20); Calcium 8.4 mg/dL (8.6-10.3); EGFR African American 161.6 (>60); EGFR Non-African American 133.6 (>60); Potassium 3.6 mmol/L (3.5-5.0)
--- NOTE | 2018-07-15 09:49 | PN ---
Progress Note - Progress Note Date of Service: 07/15/18 SOAP: Subjective: [pt continues to improve/ + flatus/ eating some but has early satiety/ pain controlled/ voiding on own/ ] Objective: [vitals stable . afebrile abdonmen soft , mildly tender/ + bowel sounds incision clean dry intact . mild amount of echymosis along the mid incision] extremities - nontender Assessment: [s/p exploratory laparotomy / supracervical hysterectomy lso massive transfusion. /coagulopathy] Plan: [suspect she will be ready for transfer to floor soon / ambulate/ Ascencion Mak MD]
[2018-07-15] MEDS ORDERED: NS 0.9% 500 ML* 500 ML IV ONE (10:59)
[2018-07-15] MEDS ORDERED: Potassium Chloride LIQUID* 20 MEQ PACKET ONE (11:05)
[2018-07-15 11:48] LABS: ABS Basophils 0 10^3/ul (0-0.2); ABS Eosinophils 0.4 10^3/ul (0-0.6); ABS Lymphocytes 0.7 10^3/ul (1.0-4.8); ABS Monocytes 0.5 10^3/ul (0-0.8); ABS Neutrophils 6.8 10^3/ul (1.5-7.7); ABS Nucleated RBC 0 10^3/ul; Eosinophil % 5.2 %; Hematocrit 35 % (33-41); Lymphocyte % 7.9 %; Mean Corpuscular HGB Conc 35 g/dL (31-36); Mean Corpuscular Hemoglobin 30 pg (27-31); Mean Corpuscular Volume 88 fL (80-97); Mean Platelet Volume 7.8 fL (7.4-10.4); Nucleated Red Blood Cells % 0; Platelet Count 132 10^3/uL (150-450); Red Blood Count 3.94 10^6 /uL (3.70-4.87); Red Cell Distribution Width 14 % (10.5-15); White Blood Count 8.4 10^3/uL (3.5-10.8)
--- NOTE | 2018-07-15 13:03 | PN ---
Date of Service: 07/15/18 - TRANSFER NOTE Critical Care Services: 42 YO F s/p elective hysterectomy during this hospitalization complicated by hemorrhagic shock in the setting of hemo-peritoneum on 07/13. Over the course, patient underwent an emergent ex-lap and received multiple courses of blood products paco-op/post-operatively. 07/13- extubated Overnight events/current complains: Patient reports optimal pain control. She has tolerated oral intake. She does feel light-headed but denies any loss of consciousness. No BM >24 hours. No need for blood products >48 hours Vital Signs: Temp Pulse Resp BP SpO2 FiO2 98.4 F 96 27 114/79 100 2 07/15/18 11:51 07/15/18 12:00 07/15/18 12:00 07/15/18 12:00 07/15/18 12:00 07/14 15:26 Physical Exam: Constitutional: awake, alert, no distress, no diaphoresis Head: normocephalic, atraumatic Eyes: no pallor now, no icterus ENT: moist mucous membranes Neck: soft, supple, no jvd CVS: normal rate, regular, no murmur Resp: bilateral air entry,normal effort, no wheezes Abdomen/GI: soft, tender+, midline surgical site dressed and intact, nondistended, BS+ Ext/Msk: no edema, cynanosis Skin: intact, warm Neuro: awake,alert, oriented x3, moving all ext Fluid Balance (Past 24 Hours): I= O= Net Intake & Output 07/13/18 07/14/18 07/15/18 07/16/18 06:59 06:59 06:59 06:59 Intake Total 4492 2086 827 750 Output Total 2670 7980 3425 1200 Balance 1822 -5894 -2598 -450 Weight 146 lb 14.4 oz 139 lb 1 oz 131 lb 9 oz Intake: IV Fluids 2737 1896 577 500 LR 2207 1896 NS (0.9%) 480 500 NS 50ML, Cefazolin 2G 50 meds 577 Medicated IV 186 100 CC - Norepinephrine/ 23 Levophed CC - Propofol/Diprivan 163 potassium 100 Oral 90 250 250 Packed Cells 930 0 0 Fresh Frozen Plasma 639 0 0 Output: Urine 4300 400 1200 [place] 2670 3680 3025 ADLs: Meal Record Start: 07/12/18 13: 36 Freq: Status: Active Protocol: Created 07/12/18 13:36 System (Rec: 07/12/18 13:36 System DIET-C06) ADLs: Meal Record Start: 07/12/18 18: 45 Freq: 09,13,18 Status: Complete Protocol: Created 07/12/18 18:45 [id number] (Rec: 07/12/18 18:45 [id number] ICU-M34) Document 07/13/18 09:00 [id number] (Rec: 07/13/18 11:32 [id number] ICU-C06) Document 07/13/18 13:00 [id number] (Rec: 07/13/18 13:19 [id number] ICU-C06) Document 07/13/18 18:00 [id number] (Rec: 07/13/18 18:37 [id number] ICU-C06) Document 07/14/18 09:00 [id number] (Rec: 07/14/18 10:38 [id number] ICU-C06) Document 07/14/18 13:00 LEJ5736 (Rec: 07/14/18 14:16 [id number] ICU-C06) Document 07/14/18 18:00 [id number] (Rec: 07/14/18 19:12 [id number] ICU-C06) Document 07/15/18 11:02 ICL8583 (Rec: 07/15/18 11:02 PLE5341 ICU-C25) Intake and Output Start: 07/12/18 13: 36 Freq: DAILY@0600,1400,2200 Status: Active Protocol: Created 07/12/18 13:36 System (Rec: 07/12/18 13:36 System DIET-C06) Document 07/15/18 12:24 [id number] (Rec: 07/15/18 12:25 [id number] ICU-C25) Intake and Output Start: 07/12/18 18: 45 Freq: 06,14,2200 Status: Complete Protocol: Created 07/12/18 18:45 [id number] (Rec: 07/12/18 18:45 [id number] ICU-M34) Document 07/12/18 23:30 DRH6272 (Rec: 07/13/18 02:47 IPZ2049 ICU-C62) Document 07/13/18 00:00 [id number] (Rec: 07/13/18 00:01 IXS6139 ICU-M34) Document 07/13/18 00:07 [id number] (Rec: 07/13/18 00:07 [id number] ICU-M34) Document 07/13/18 01:00 XKZ5843 (Rec: 07/13/18 01:06 RYR5740 ICU-C06) Document 07/13/18 02:00 HOQ6113 (Rec: 07/13/18 02:03 KQE2591 ICU-C06) Document 07/13/18 03:00 YRG1986 (Rec: 07/13/18 03:09 [id number] ICU-C06) Document 07/13/18 05:00 UAF6169 (Rec: 07/13/18 05:02 [id number] ICU-C06) Document 07/13/18 06:00 [id number] (Rec: 07/13/18 06:01 [id number] ICU-C06) Document 07/13/18 07:00 [id number] (Rec: 07/13/18 08:43 UEQ8591 ICU-C06) Document 07/13/18 08:00 WTF5553 (Rec: 07/13/18 08:50 OXH1099 ICU-C06) Document 07/13/18 09:00 PUP2758 (Rec: 07/13/18 11:30 VQR0162 ICU-C06) Document 07/13/18 10:00 UEC9362 (Rec: 07/13/18 11:30 [id number] ICU-C06) Document 07/13/18 11:00 AQX8781 (Rec: 07/13/18 11:30 [id number] ICU-C06) Document 07/13/18 11:51 NAM7081 (Rec: 07/13/18 11:51 DRD7065 ICU-C06) Document 07/13/18 14:00 NNH8233 (Rec: 07/13/18 15:02 MOK1433 ICU-C06) Document 07/13/18 15:00 BDA3573 (Rec: 07/13/18 15:13 [id number] ICU-C06) Document 07/13/18 15:13 RIM5052 (Rec: 07/13/18 15:23 BQP2773 ICU-C06) Document 07/13/18 18:00 JGB3468 (Rec: 07/13/18 18:27 [id number] ICU-C06) Document 07/13/18 19:00 ZRW2728 (Rec: 07/13/18 20:19 [id number] ICU-M34) Document 07/13/18 20:00 IZJ7797 (Rec: 07/13/18 20:19 [id number] ICU-M34) Document 07/13/18 21:00 EPF5312 (Rec: 07/13/18 22:16 HXX5230 ICU-C06) Document 07/13/18 22:00 NIM6010 (Rec: 07/13/18 22:16 [id number] ICU-C06) Document 07/13/18 23:00 JWR5075 (Rec: 07/14/18 00:14 OUL0071 ICU-C06) Document 07/14/18 00:30 VWD5724 (Rec: 07/14/18 00:56 VSK4418 ICU-C06) Document 07/14/18 01:00 UEM9629 (Rec: 07/14/18 01:28 XPA1330 ICU-C06) Document 07/14/18 02:00 UII4997 (Rec: 07/14/18 03:25 KFO0693 ICU-C06) Document 07/14/18 03:00 KWC7158 (Rec: 07/14/18 03:25 CDC0176 ICU-C06) Document 07/14/18 04:00 AQW8712 (Rec: 07/14/18 04:30 [id number] ICU-C06) Document 07/14/18 05:00 FMU8341 (Rec: 07/14/18 05:49 BPR2617 ICU-C06) Document 07/14/18 05:49 LDB2382 (Rec: 07/14/18 05:49 [id number] ICU-C06) Document 07/14/18 07:00 BLH0846 (Rec: 07/14/18 07:27 [id number] ICU-C06) Document 07/14/18 08:00 QZS8479 (Rec: 07/14/18 08:00 [id number] ICU-C06) Document 07/14/18 10:00 WGR8482 (Rec: 07/14/18 12:18 HEB7623 ICU-C06) Document 07/14/18 11:00 AZX6187 (Rec: 07/14/18 12:20 [id number] ICU-C06) Document 07/14/18 12:00 AXJ3466 (Rec: 07/14/18 12:22 [id number] ICU-C06) Document 07/14/18 14:00 BNW6382 (Rec: 07/14/18 14:12 [id number] ICU-M34) Document 07/14/18 20:00 RYK5170 (Rec: 07/14/18 23:47 KQL9152 ICU-C06) Document 07/14/18 23:00 RPZ3251 (Rec: 07/14/18 23:47 YPQ5335 ICU-C06) Document 07/15/18 04:00 SPU3489 (Rec: 07/15/18 05:08 GHT0217 ICU-C06) Document 07/15/18 07:28 EYE9105 (Rec: 07/15/18 07:28 [id number] ICU-C14) Document 07/15/18 09:44 FCI1606 (Rec: 07/15/18 09:44 QLQ0589 ICU-C25) Labs: Laboratory Results - last 24 hr 07/15/18 07/15/18 07/15/18 05:00 05:00 05:00 WBC 8.1 RBC 3.47 L Hgb 10.7 L Hct 31 L MCV 88 MCH 31 MCHC 35 RDW 14 Plt Count 135 L MPV 7.4 Neut % (Auto) 70.2 Lymph % (Auto) 14.9 [place] % (Auto) 9.2 Eos % (Auto) 5.6 Baso % (Auto) 0.1 Absolute Neuts (auto) 5.7 Absolute Lymphs (auto) 1.2 Absolute Monos (auto) 0.7 Absolute Eos (auto) 0.4 Absolute Basos (auto) 0 Absolute Nucleated RBC 0 Nucleated RBC % 0 INR (Anticoag Therapy) 1.02 Sodium 137 Potassium 3.6 Chloride 103 Carbon Dioxide 28 Anion Gap 6 BUN 7 Creatinine 0.51 Est GFR ( Amer) 161.6 Est GFR (Non-Af Amer) 133.6 BUN/Creatinine Ratio 13.7 Glucose 86 Calcium 8.4 L Magnesium 2.0 07/15/18 11:30 WBC 8.4 RBC 3.94 Hgb 12.0 Hct 35 MCV 88 MCH 30 MCHC 35 RDW 14 Plt Count 132 L MPV 7.8 Neut % (Auto) 80.4 Lymph % (Auto) 7.9 [place] % (Auto) 6.4 Eos % (Auto) 5.2 Baso % (Auto) 0.1 Absolute Neuts (auto) 6.8 Absolute Lymphs (auto) 0.7 L Absolute Monos (auto) 0.5 Absolute Eos (auto) 0.4 Absolute Basos (auto) 0 Absolute Nucleated RBC 0 Nucleated RBC % 0 INR (Anticoag Therapy) Sodium Potassium Chloride Carbon Dioxide Anion Gap BUN Creatinine Est GFR ( Amer) Est GFR (Non-Af Amer) BUN/Creatinine Ratio Glucose Calcium Magnesium Nutrition: regular unrestricted Impression: 42y F who presented for elective hysterectomy complicated by hemorrhagic shock due to intra-abd hemorrhage s/p ex-lap emergently on 07/12 and MTP -s/p Hysterectomy 07/12 - POD#2 -s/p Ex-lap 07/12 -Hemoperitoneum -Hemorrhagic Shock -Acute blood loss anemia -Dilutional Coagulopathy -acute respiratory failure, unspecified - tachycardia due to hypovolemia Plan: -s/p Hysterectomy 07/12 - POD#2 -s/p Ex-lap 07/12 -Hemoperitoneum -Hemorrhagic Shock -Acute blood loss anemia -Dilutional Coagulopathy -acute respiratory failure, unspecified - tachycardia due to hypovolemia - Hypokalemia Neuro- at baseline mental status; Post surgical pain on hydromorphone and percocet prn no other acute/active concerns CVS- - BP optimized, however, tachycardic which is likely due to hypovolemia. Will bolus 500 cc of NS now. No active/acute concerns for ongoing bleed. Recheck CBC Resp- stable respiratory status ID No concerns for active infection GI/pelvic- -abd soft, tender around surgical sites; intact otherwise -on regular diet -quill collector following. Discussed plan with Dr. Acharya - Constipation- will start on bowel regimen. Renal- Renal function within normal limits with good urine output. -hypokalemia; replete orally with KCL 40 meq today - remove alicea today Heme- hemorrhagic shock due to hemoperitoneum and dilutional coagulopathy resolved Hematological and coagulation panel within range Endo-Maintain BG<200, insulin protocol as needed today Wounds- surgical wound checks/care to ex-lap site DVT prophylaxis: SCDs, consider restarting in 48 hours if indicated GI prophylaxis: not indicated [place] Catheter: yes, will discontinue today Disposition: Patient is stable to be transferred to Surgical stay unit today discussed current status and findings with family (mother, step-father) and patient at bedside Patient clinical status: stable/improved Code Status: full code Critical Care time: 40 minutes
[2018-07-15] MEDS ORDERED: Senna TAB PO PRN (13:24)
[2018-07-15] MEDS ORDERED: Docusate CAP* 100 MG PO PRN (13:24)
--- NOTE | 2018-07-15 17:16 | PN ---
Progress Note - Progress Note Date of Service: 07/15/18 SOAP: Subjective: [pt doing well , had a walk but was a little shaky on her feet/ + flatus ] Objective: [vss afebrile/ pulse in 90's/ urine out is good. still diuresing chest cta cor -rr s m/g/r not hyperdynamic + bowel sounds in al quadrants / normoactive incision c/d /i no erythema extremities nontender] labs all returning in normal range now except calcium which is improving Assessment: [s/p exploratory laparotomy after laparoscopic hysterectomy and hemorrhagic shock and massive transfusion doing very well / ] Plan: [will give her incentive spirometry and abdominal binder encourage ambulation ]
[2018-07-16 06:22] LABS: ABS Basophils 0 10^3/ul (0-0.2); ABS Eosinophils 0.6 10^3/ul (0-0.6); ABS Lymphocytes 1.2 10^3/ul (1.0-4.8); ABS Monocytes 0.7 10^3/ul (0-0.8); ABS Neutrophils 5.2 10^3/ul (1.5-7.7); ABS Nucleated RBC 0 10^3/ul; Eosinophil % 7.8 %; Hematocrit 30 % (33-41); Hemoglobin 10.5 g/dL (12.0-16.0); Lymphocyte % 15.2 %; Mean Corpuscular HGB Conc 35 g/dL (31-36); Mean Corpuscular Hemoglobin 31 pg (27-31); Mean Corpuscular Volume 88 fL (80-97); Mean Platelet Volume 7.8 fL (7.4-10.4); Nucleated Red Blood Cells % 0; Platelet Count 155 10^3/uL (150-450); Red Cell Distribution Width 14 % (10.5-15); White Blood Count 7.6 10^3/uL (3.5-10.8)
[2018-07-16 06:25] LABS: INR 0.98 (0.77-1.02)
[2018-07-16 06:31] LABS: BUN/Creatinine Ratio 18.8 (8-20); Calcium 8.4 mg/dL (8.6-10.3); EGFR African American 173.3 (>60); EGFR Non-African American 143.2 (>60); Magnesium 1.9 mg/dL (1.9-2.7); Potassium 3.8 mmol/L (3.5-5.0)
[2018-07-16] MEDS ORDERED: Polyethylene Glycol 3350* 17 GM PACKET PO SCH (09:00)
--- NOTE | 2018-07-16 09:23 | PN ---
Progress Note - Progress Note Date of Service: 07/16/18 SOAP: Subjective: [pt feeling improved today . + flatus, starting to ambulate with fatigue] Objective: [vss / afebrile chest -cta cor rr- sans m/g/r abdomen soft + bowel sounds]negative cva tenderness incsion - c/d/ i extremities - nontender urine output good labs c/w equilibration of fluids intravascularly with hgb down to 10/ platelets now in normal range rest of labs normalizing / calcium still slightly low at 8.4 Assessment: [s/p supracerviacal hysterectomy / lso exploratory laparotomy with vascular collapse / coagulopathy improving / ] Plan: [will add some calcium orally to replenish. nursing asked for PT consult to assist with ambulation recovery. Weakness may be due to degree of anemia which might not be reflected in the hgb as pt is still mobilizing fluid ] addendum- discussed at length risks of transfusion and the necessity for getting at the time. We can do testing at interval if desired to r/o viral transmission. discussed events again and speculation on the cause( still very much in question )
[2018-07-16] MEDS ORDERED: Calcium Citrate TAB* 200 MG PO SCH (10:00)
[2018-07-16] MEDS ORDERED: Potassium Chloride LIQUID* 20 MEQ PACKET PO ONE (11:01)
[2018-07-16] MEDS ORDERED: Pseudoephedrine TAB* 60 MG PO PRN (14:00)
[2018-07-16] MEDS ORDERED: guaiFENesin LIQ* 100 MG/5 ML UDC PO PRN (14:00)
[2018-07-16 16:19] VITALS: BP 114/80
--- NOTE | 2018-07-16 17:21 | PN ---
Progress Note - Progress Note Date of Service: 07/16/18 Note: evening rounds pt desires to go home + bm today. appetite is better . no longer any abdominal pain and has not taken any pain meds today. vss afebrile + bowel sounds incision is intact / healing well extremities nontender pod #4 doing great will take out ricardo on sunday warnings to call with any problems family supportive reviewed instructions
[2018-07-16] MEDS ORDERED: Ferrous Gluconate TAB* 324 MG TAB PO SCH (21:00)
== END 2018-07-16 17:30 | disposition home or self-care (01) | DRG 513 ==
LOC: OR 08:33 → SSU 12:10 → OBSVTOIN 16:00 → SSU 16:00 → ICU 18:41 → SSU 07-15 11:01 → ICU 07-15 13:32 → SSU 07-15 13:32
PROVIDERS: ADMIT Obstetrics & Gynecology; ATTEND Obstetrics & Gynecology
PROC: 0UT78ZZ Resection of Bilateral Fallopian Tubes, Via Natural or Artificial Opening Endoscopic (ICD-10-PCS; 2018-07-12)
PROC: 0DNW4ZZ Release Peritoneum, Percutaneous Endoscopic Approach (ICD-10-PCS; 2018-07-12)
PROC: 0U5B0ZZ Destruction of Endometrium, Open Approach (ICD-10-PCS; 2018-07-12)
PROC: 0W3J4ZZ Control Bleeding in Pelvic Cavity, Percutaneous Endoscopic Approach (ICD-10-PCS; 2018-07-12)
PROC: 0UT10ZZ Resection of Left Ovary, Open Approach (ICD-10-PCS; 2018-07-12)
PROC: 0W3J0ZZ Control Bleeding in Pelvic Cavity, Open Approach (ICD-10-PCS; 2018-07-12)
PROC: 0UQ00ZZ Repair Right Ovary, Open Approach (ICD-10-PCS; 2018-07-12)
PROC: 302 Administration, Circulatory, Transfusion (ICD-10-PCS; 2018-07-12)
PROC: 30233N1 Transfusion of Nonautologous Red Blood Cells into Peripheral Vein, Percutaneous Approach (ICD-10-PCS; 2018-07-12)
PROC: 30233R1 Transfusion of Nonautologous Platelets into Peripheral Vein, Percutaneous Approach (ICD-10-PCS; 2018-07-12)
PROC: 30233K1 Transfusion of Nonautologous Frozen Plasma into Peripheral Vein, Percutaneous Approach (ICD-10-PCS; 2018-07-12)
PROC: 5A1935Z Respiratory Ventilation, Less than 24 Consecutive Hours (ICD-10-PCS; 2018-07-12)
PROC: 0BH17EZ Insertion of Endotracheal Airway into Trachea, Via Natural or Artificial Opening (ICD-10-PCS; 2018-07-12)
PROC: 04HL33Z Insertion of Infusion Device into Left Femoral Artery, Percutaneous Approach (ICD-10-PCS; 2018-07-12)
PROC: 05HY33Z Insertion of Infusion Device into Upper Vein, Percutaneous Approach (ICD-10-PCS; 2018-07-12)
PROC: 0UT98ZZ Resection of Uterus, Via Natural or Artificial Opening Endoscopic (ICD-10-PCS; principal; 2018-07-12 10:30)
DX: N80.0 Endometriosis of uterus (principal); J96.00 Acute respiratory failure, unspecified whether with hypoxia or hypercapnia; K66.1 Hemoperitoneum; T81.19XA Other postprocedural shock, initial encounter; N99.821 Postprocedural hemorrhage of a genitourinary system organ or structure following other procedure; N99.71 Accidental puncture and laceration of a genitourinary system organ or structure during a genitourinary system procedure; D68.8 Other specified coagulation defects; D68.2 Hereditary deficiency of other clotting factors; D62 Acute posthemorrhagic anemia; I95.81 Postprocedural hypotension; D69.6 Thrombocytopenia, unspecified; E83.42 Hypomagnesemia; E87.6 Hypokalemia; R00.0 Tachycardia, unspecified; N94.6 Dysmenorrhea, unspecified; G43.829 Menstrual migraine, not intractable, without status migrainosus; N73.6 Female pelvic peritoneal adhesions (postinfective); R14.0 Abdominal distension (gaseous); X58.XXXA Exposure to other specified factors, initial encounter; Y92.230 Patient room in hospital as the place of occurrence of the external cause; N83.202 Unspecified ovarian cyst, left side; Z80.7 Family history of other malignant neoplasms of lymphoid, hematopoietic and related tissues; Z80.1 Family history of malignant neoplasm of trachea, bronchus and lung; Z79.3 Long term (current) use of hormonal contraceptives; Z79.1 Long term (current) use of non-steroidal anti-inflammatories (NSAID); Z79.899 Other long term (current) drug therapy
CPT/HCPCS: 36415; 71045; 74018; 80048; 80053; 80076; 82330; 82550; 82803; 83605; 83735; 84100; 85014; 85018; 85025; 85060; 85384; 85610; 85730; 86850; 86900; 86901; 86922; 86927; 86965; 88305; 88307; 94002; 99223; P9012; A9270-GY; G8978-GP-CI; G8979-GP-CI; G8980-GP-CI; J0171; J0330; J0610; J0690; J0694; J1100; J1170; J1885; J1940; J2250; J2405; J2704; J3010; J3475; J3480; J7189; P9016; P9017; P9035; P9040; P9045